=== PATIENT | male | born 1950 | race Caucasian/White ===

== ENCOUNTER → 2018-01-14 10:20 | Outpatient (CLI) | payer MEDICARE, OTHER, SELFPAY ==
[2018-01-14 12:28] LABS: Prostate Specific Antigen 0.762 ng/mL (0.10-4.00)
== END ==
PROVIDERS: Visit Provider Urology
DX: C61 Malignant neoplasm of prostate (principal)
CPT/HCPCS: 36415; 84153

== ENCOUNTER → 2018-05-20 08:27 | Outpatient (CLI) | payer MEDICARE, OTHER, SELFPAY ==
[2018-05-20 10:47] LABS: Alanine Aminotransferase 34 IU/L (21-72); Albumin 4.2 g/dL (3.5-5.0); Albumin Globulin Ratio 1.2 (1.0-2.8); Alkaline Phosphatase 63 U/L (38-126); Aspartate Aminotransferase 38 IU/L (17-59); BUN Creatinine Ratio 27.8 (6-22); Bilirubin Total 0.4 mg/dL (0.2-1.3); Blood Urea Nitrogen 25 mg/dL (9-20); Calcium 9.4 mg/dL (8.4-10.2); Carbon Dioxide 29 mmol/L (22-32); Chloride 100 mmol/L (98-107); Estimated Glomerular Filt Rate > 60.0 mL/min (>60); Globulin 3.5 g/dL (1.7-4.1); Glucose 72 mg/dL (80-110); HEMOLYSIS < 15 (0-50); Potassium 4.6 mmol/L (3.4-5.1); Sodium 141 mmol/L (137-145); Total Protein 7.7 g/dL (6.3-8.2)
== END ==
PROVIDERS: PCP Registered Nurse; Visit Provider Registered Nurse
DX: I10 Essential (primary) hypertension (principal)
CPT/HCPCS: 36415; 80053

== ENCOUNTER → 2018-06-18 11:39 | Outpatient (CLI) | payer MEDICARE, OTHER, SELFPAY ==
[2018-06-18 12:10] LABS: Add Manual Diff / Slide Review NO; Basophils Percent Auto 1.1 % (0-2); Eosinophils Percent Auto 2.5 % (2-4); Hematocrit 32.2 % (41-53); Hemoglobin 11.1 g/dL (13.5-17.5); Lymphocytes Percent Auto 37.8 % (25-40); Mean Corpuscular HGB Conc 34.5 % (30-36); Mean Corpuscular Volume 81.1 fL (80-100); Monocytes Percent Auto 20.1 % (3-14); Neutrophils Absolute Auto 1700 /uL (1500-7000); Neutrophils Percent Auto 38.5 % (50-75); Platelet Count 297 X10^3/uL (150-400); Red Blood Cell Count 3.97 X10^6/uL (4.5-5.9); White Blood Cell Count 4.5 X10^3/uL (4.5-11.0)
[2018-06-18 12:23] LABS: Erythrocyte Sedimentation Rate 57 MM/HR (0-15)
[2018-06-18 12:24] LABS: Alanine Aminotransferase 39 IU/L (21-72); Albumin 4.2 g/dL (3.5-5.0); Albumin Globulin Ratio 1.1 (1.0-2.8); Alkaline Phosphatase 68 U/L (38-126); Aspartate Aminotransferase 29 IU/L (17-59); BUN Creatinine Ratio 27.8 (6-22); Bilirubin Total 0.5 mg/dL (0.2-1.3); Blood Urea Nitrogen 25 mg/dL (9-20); Calcium 9.5 mg/dL (8.4-10.2); Carbon Dioxide 26 mmol/L (22-32); Chloride 102 mmol/L (98-107); Estimated Glomerular Filt Rate > 60.0 mL/min (>60); Globulin 3.7 g/dL (1.7-4.1); Glucose 98 mg/dL (80-110); HEMOLYSIS < 15 (0-50); Potassium 4.9 mmol/L (3.4-5.1); Sodium 143 mmol/L (137-145); Total Protein 7.9 g/dL (6.3-8.2)
[2018-06-18 12:26] LABS: C-Reactive Protein Quant < 0.5 mg/dL (<1.0)
[2018-06-18 12:35] LABS: Vitamin D 25 Hydroxy (D3) 54.7 ng/mL (30.0-100.0)
== END ==
PROVIDERS: PCP Registered Nurse; Visit Provider Specialist/Technologist Athletic Trainer
DX: M81.0 Age-related osteoporosis without current pathological fracture (principal); M05.79 Rheumatoid arthritis with rheumatoid factor of multiple sites without organ or systems involvement
CPT/HCPCS: 36415; 80053; 82306; 85025; 85651; 86140

== ENCOUNTER 2018-08-28 09:14 | Emergency (ER) | payer MEDICARE, OTHER, SELFPAY ==
[2018-08-28 09:15] VITALS: BP 160/83; PULSE 63; RESP 18; TEMP 36.6; O2SAT 100; BMI 27.1
--- NOTE | 2018-08-28 09:19 | ED.DIZZY ---
HPI - Dizziness General Chief Complaint: Dizziness Stated Complaint: DIZZINESS Time Seen by Provider: 08/28/18 09:18 Source: patient Mode of arrival: ambulatory Limitations: no limitations History of Present Illness HPI Narrative: patient is a 68-year-old presenting with a sudden onset of dizziness. He has a recent diagnosis of melanoma in the fall of 2017. Yesterday he was feeling well. This morning he woke up had breakfast was brushing his teeth and suddenly felt dizzy and lightheaded. He does feel like he cannot concentrate. He denies any chest pain or heart palpitations. He says that he is having some difficulty walking his due to the dizziness. He feels like the lightheadedness gets worse when he lies down and is slightly better with movement. He feels a little nauseated no episodes of vomiting. MD complaint: dizziness Onset (ago): minute(s) Timing: sudden onset Description: sense of movement History of similar episodes: No History of trauma: No Severity: moderate Relieving factors: nothing Related Data Home Medications Medication Instructions Recorded Confirmed CHOLECALCIFEROL (VITAMIN D3) 2,000 iu PO Q DAY #0 12/31/11 07/01/18 (Vitamin D-3) Iron (#[facility] IRON) 27 mg PO QDAY #0 04/22/12 07/01/18 leflunomide 20 mg tablet 20 mg PO DAILY 04/23/18 07/01/18 Previous Rx's Medication Instructions Recorded alprazolam [Xanax] 0.5 mg PO Q8HP #30 tab 07/20/17 omeprazole 20 mg capsule,delayed 20 mg PO QDAY #90 cap 03/22/18 release chlorthalidone 25 mg tablet 25 mg PO DAILY #90 tab 07/01/18 lisinopril 20 mg tablet 20 mg PO BID #180 tab 07/01/18 fluticasone 50 mcg/actuation nasal 1 spray INTRANASAL BID #3 gram 07/12/18 spray,suspension Allergies Allergy/AdvReac Type Severity Reaction Status Date / Time No Known Drug Allergies Allergy Verified 08/28/18 09:24 Review of Systems Review of Systems ROS Unobtainable: All systems reviewed & are unremarkable except as noted in HPI and below Constitutional Denies chills, Denies fever(s), Denies lethargy and Denies weakness Eyes Reports blurry vision, Denies change in vision, Denies eye discharge, Denies irritation and Denies loss of vision Cardiovascular Denies chest pain, Denies irregular heart rhythm, Reports lightheadedness, Denies dyspnea and Denies dyspnea on exertion Respiratory Denies cough, Denies dyspnea, Denies dyspnea on exertion and Denies wheezing Genitourinary Denies hematuria, Denies flank pain, Denies urinary incontinence and Denies urinary urgency Musculoskeletal Denies back pain, Denies muscle weakness, Denies numbness and Denies tingling Integumentary/Breasts Denies pruritus, Denies erythema, Denies rash and Denies wounds Neurologic Denies loss of vision, Denies numbness, Denies tingling and Denies weakness Allergic/Immunologic Denies wheezing [facility] Medical History Melanoma (Acute) BPH (benign prostatic hyperplasia) (Chronic 2015) Hypertension (Chronic 2015) Osteoporosis (Chronic) Rheumatoid arthritis (Chronic) Colon polyps (Resolved 2006) Prostate cancer (Resolved 05/16/16) Testicular cancer (Resolved 1993) Surgical History History of colonoscopy (Resolved ~06/06/13) S/P TURP (transurethral resection of prostate) (Resolved 05/16/16) Status post colonoscopy (Resolved 2006) Status post orchiectomy (Resolved 1993) Social History Smoking Status: Never smoker Social History Smoking Status: Never smoker Exam Initial Vital Signs Initial Vital Signs: Vital Signs Temperature 97.9 F 08/28/18 09:15 Pulse Rate 63 08/28/18 09:15 Respiratory Rate 18 08/28/18 09:15 Blood Pressure 160/83 H 08/28/18 09:15 Pulse Oximetry 100 08/28/18 09:15 GENERAL: alert elderly male no acute distress HEENT: Head atraumatic,EOMI, pupils reactive, face symmetric,, neck supple CARDIOVASCULAR: Regular rate and rhythm without murmurs, rubs or gallops. RESPIRATORY: Breath sounds equal bilaterally, no wheezes rales or rhonchi. ABDOMEN: Soft, nontender. Normoactive bowel sounds all 4 quadrants. No guarding or rebound. EXTREMITIES: Normal range of motion, no clubbing or edema. Neurovascularly intact NEUROLOGICAL: Alert and oriented x4.Normal gait and speech. Cranial nerves II through XII grossly intact. Good nabpxz-dw-yexj, good twnj-qn-bjyr, strength equal bilaterally, no dysarthria or aphasia, sensation in tact to soft touch bilaterally, no visual changes, no facial droop SKIN: Warm, dry, no laceration, no petechiae, no rashes or lesions. Scores NIH Stroke Scale Level of Conciousness: Alert, keenly responsive Ask month/age: Answers both questions correctly. Open/close eyes, close hand: Performs both tasks correctly Best gaze horizontal: Normal Visual calderon: No visual loss Facial palsy: Normal symetrical movement Left arm drift: No drift for full 10 sec Right arm drift: No drift for full 10 sec Left leg drift: No drift for full 10 sec Right leg drift: No drift for full 10 sec Limb ataxia: Absent Sensory on face/arms/legs: Normal, no sensory loss Best language: No aphasia, normal Dysarthria: Normal Extinction or inattention: No abnormality Total NIH Stroke scale score: 0 Course Orders Ordered: ED Orders 08/28/18 09:24 CT head/brain wo con Stat 08/28/18 09:40 Complete Blood Count AUTO DIFF Stat Comprehensive Metabolic Panel Stat Troponin & CK Cardiac Panel Stat Discontinued Medications Sodium Chloride (Normal Saline 0.9%) 1,000 mls @ 1,000 mls/hr IV CONT KARI Last Infusion: 08/28/18 10:53 Dose: 0 mls/hr Admin: 08/28/18 09:39 Dose: 1,000 mls/hr Ondansetron HCl (Zofran) 4 mg IV NOW ONE Stop: 08/28/18 09:24 Last Admin: 08/28/18 09:39 Dose: 4 mg Vital Signs - 8 hr 08/28/18 09:15 08/28/18 09:48 08/28/18 10:00 Temperature 97.9 F Pulse Rate 63 65 65 Respiratory Rate 18 12 16 Blood Pressure 160/83 H Blood Pressure [Left Arm] 137/75 Blood Pressure [Right Arm] 141/84 H Pulse Oximetry 100 100 99 08/28/18 10:49 Temperature Pulse Rate 68 Respiratory Rate 10 L Blood Pressure Blood Pressure [Left Arm] 138/73 Blood Pressure [Right Arm] Pulse Oximetry 100 MDM - Dizziness Lab Data Attestation: I reviewed the patient's lab results. Result diagrams: 08/28/18 09:40 08/28/18 09:40 Lab Results 08/28/18 08/28/18 08/28/18 Range/Units 09:40 09:40 09:40 WBC 4.2 L (4.5-11.0) X10^3/uL RBC 3.86 L (4.5-5.9) X10^6/uL Hgb 10.7 L (13.5-17.5) g/dL Hct 32.1 L (41-53) % MCV 83.1 (80-100) fL MCH 27.8 (26-34) PG MCHC 33.4 (30-36) % RDW 13.2 (11.6-14.8) % Plt Count 247 (150-400) X10^3/uL Neut % (Auto) 53.1 (50-75) % Lymph % (Auto) 24.3 L (25-40) % [place] % (Auto) 20.1 H (3-14) % Eos % (Auto) 1.5 L (2-4) % Baso % (Auto) 1.0 (0-2) % Neut # (Auto) 2200 (5191-3937) /uL Lymph # (Auto) 1000 L (0222-8709) /uL [place] # (Auto) 800 (0-900) /uL Eos # (Auto) 100 (0-450) /uL Baso # (Auto) 0 (0-100) /uL Sodium 140 (137-145) mmol/L Potassium 4.6 (3.4-5.1) mmol/L Chloride 101 (98-107) mmol/L Carbon Dioxide 27 (22-32) mmol/L BUN 28 H (9-20) mg/dL Creatinine 0.90 (0.66-1.25) mg/dL Estimated GFR > 60.0 (>60) mL/min BUN/Creatinine Ratio 31.1 H (6-22) Glucose 155 H (80-110) mg/dL Calcium 9.2 (8.4-10.2) mg/dL Total Bilirubin 0.4 (0.2-1.3) mg/dL AST 30 (17-59) IU/L ALT 29 (21-72) IU/L Alkaline Phosphatase 57 (38-126) U/L Total Creatine Kinase 230 H (55-170) U/L CK-MB (CK-2) 4.52 H (<2.37) ng/mL CK-MB (CK-2) Rel Index 2.0 (1.5-5.0) % Troponin I < 0.012 (0.01-0.034) ng/mL Total Protein 7.8 (6.3-8.2) g/dL Albumin 4.2 (3.5-5.0) g/dL Globulin 3.6 (1.7-4.1) g/dL Albumin/Globulin Ratio 1.2 (1.0-2.8) ECG Data Attestation: I personally reviewed and interpreted this ECG as follows: Prior ECG tracings: available for review Interpretation: normal sinus rhythm rate [address] changes slightly enlarged T-waves similar to previous EKG in 2016. No changes. MDM Narrative Medical decision making narrative: patient is feeling significantly better after IV fluids. Feels ready and able to go home. Discharge Plan Departure Patient Disposition: Home Clinical Impression: Dehydration Discharge Date/Time: 08/28/18 11:07 Interventions: ED Discharge Assessment Last Done: 08/28/18 11:06 Instructions: DI for Dehydration -- Adult Activity Restrictions/Additional Instructions: *You have been diagnosed with dehydration *What to do: blood work and CT scan are reassuring today. Recommend increasing fluid intake throughout the day. *Continue to take medications as directed *Follow up with your primary care provider in 2-3 days *Return to ER if you should have persistent dizziness, lightheadedness, is weakness, chest pain or any new, worsening or concerning symptoms Prescriptions: No Action CHOLECALCIFEROL (VITAMIN D3) (Vitamin D-3) 2,000 iu PO Q DAY Qty: 0 RF: 0 Iron (#[facility] IRON) 27 mg PO QDAY Qty: 0 RF: 0 alprazolam [Xanax] 0.5 MG tablet 0.5 mg PO Q8HP Qty: 30 RF: 1 omeprazole 20 mg capsule,delayed release(DR/EC) 20 mg PO QDAY Qty: 90 RF: 3 fluticasone 50 mcg/actuation spray,suspension 1 spray Intranasal BID Qty: 3 RF: 3 leflunomide 20 mg tablet 20 mg PO DAILY RF: 0 lisinopril 20 mg tablet 20 mg PO BID Qty: 180 RF: 0 chlorthalidone 25 mg tablet 25 mg PO DAILY Qty: 90 RF: 0 Referrals: Rj Newell MD [Primary Care Provider] -
--- NOTE | 2018-08-28 09:24 | DI.CT.S_ITS ---
PROCEDURE: CT HEAD/BRAIN WO CON INDICATIONS: dizzy with melanoma TECHNIQUE: Noncontrast 4.5 mm thick angled axial sections acquired from the foramen magnum to the vertex, with coronal and sagittal reformats. For radiation dose reduction, the following was used: automated exposure control, adjustment of mA and/or kV according to patient size. COMPARISON: None. FINDINGS: Image quality: Excellent. CSF spaces: Basal cisterns are patent. No extra-axial fluid collections. The ventricles are symmetric in size and shape. Brain: No intracranial bleeds or masses. There is cerebral volume loss for age, with resultant ventricular and sulcal prominence. There are periventricular and deep white matter chronic small vessel ischemic changes. There is intracranial internal carotid artery and vertebral artery atherosclerosis. Skull and face: Calvarium and visualized facial bones appear intact, without suspicious lesions. Sinuses: Visualized sinuses and mastoids are clear. IMPRESSION: No acute intracranial disease process. Dictated by: Tana Guajardo MD, PhD on 08/28/2018 at 9:56 Approved by: Tana Guajardo MD, PhD on 08/28/2018 at 9:58
[2018-08-28] MEDS: ONDANSETRON 4 MG/2 ML INJ IV (09:39)
[2018-08-28] MEDS: SODIUM CHLORIDE 0.9% 1,000 ML 1000 ML IV (09:39)
[2018-08-28 09:48] VITALS: BP 141/84; PULSE 65; RESP 12; O2SAT 100
[2018-08-28 09:54] LABS: Add Manual Diff / Slide Review NO; Basophils Absolute Auto 0 /uL (0-100); Eosinophils Absolute Auto 100 /uL (0-450); Eosinophils Percent Auto 1.5 % (2-4); Hematocrit 32.1 % (41-53); Hemoglobin 10.7 g/dL (13.5-17.5); Lymphocytes Absolute Auto 1000 /uL (1100-4500); Lymphocytes Percent Auto 24.3 % (25-40); Mean Corpuscular HGB Conc 33.4 % (30-36); Mean Corpuscular Hemoglobin 27.8 PG (26-34); Mean Corpuscular Volume 83.1 fL (80-100); Monocytes Absolute Auto 800 /uL (0-900); Monocytes Percent Auto 20.1 % (3-14); Neutrophils Absolute Auto 2200 /uL (1500-7000); Neutrophils Percent Auto 53.1 % (50-75); Platelet Count 247 X10^3/uL (150-400); Red Blood Cell Count 3.86 X10^6/uL (4.5-5.9); Red Cell Distribution Width 13.2 % (11.6-14.8); White Blood Cell Count 4.2 X10^3/uL (4.5-11.0)
[2018-08-28 10:00] VITALS: BP 137/75; PULSE 65; RESP 16; O2SAT 99
[2018-08-28 10:08] LABS: Creatine Kinase 230 U/L (55-170)
[2018-08-28 10:09] LABS: Alanine Aminotransferase 29 IU/L (21-72); Albumin 4.2 g/dL (3.5-5.0); Albumin Globulin Ratio 1.2 (1.0-2.8); Alkaline Phosphatase 57 U/L (38-126); Aspartate Aminotransferase 30 IU/L (17-59); BUN Creatinine Ratio 31.1 (6-22); Bilirubin Total 0.4 mg/dL (0.2-1.3); Blood Urea Nitrogen 28 mg/dL (9-20); Calcium 9.2 mg/dL (8.4-10.2); Carbon Dioxide 27 mmol/L (22-32); Chloride 101 mmol/L (98-107); Estimated Glomerular Filt Rate > 60.0 mL/min (>60); Globulin 3.6 g/dL (1.7-4.1); Glucose 155 mg/dL (80-110); HEMOLYSIS < 15 (0-50); Potassium 4.6 mmol/L (3.4-5.1); Sodium 140 mmol/L (137-145); Total Protein 7.8 g/dL (6.3-8.2)
[2018-08-28 10:21] LABS: Troponin I < 0.012 ng/mL (0.01-0.034)
[2018-08-28 10:23] LABS: Creatine Kinase MB 4.52 ng/mL (<2.37)
[2018-08-28 10:49] VITALS: BP 138/73; PULSE 68; RESP 10; O2SAT 100
== END 2018-08-28 11:07 | disposition home or self-care (01) ==
PROVIDERS: Emergency Provider Emergency Medicine; Family Provider Family Medicine; PCP Student in an Organized Health Care Education/Training Program
DX: E86.0 Dehydration (principal)
CPT/HCPCS: 36591; 70450; 80053; 82550; 82553; 84484; 85025; 93005; 93010; 96361; 96374; 99283; 99285; J2405

== ENCOUNTER → 2018-12-24 10:34 | Outpatient (CLI) | payer MEDICARE, OTHER, SELFPAY ==
[2018-12-24 11:58] LABS: Add Manual Diff / Slide Review NO; Basophils Absolute Auto 0 /uL (0-100); Basophils Percent Auto 1.3 % (0-2); Eosinophils Absolute Auto 0 /uL (0-450); Eosinophils Percent Auto 1.3 % (2-4); Hematocrit 30.4 % (41-53); Hemoglobin 10.2 g/dL (13.5-17.5); Lymphocytes Absolute Auto 1300 /uL (1100-4500); Lymphocytes Percent Auto 41.1 % (25-40); Mean Corpuscular HGB Conc 33.5 % (30-36); Mean Corpuscular Hemoglobin 27.7 PG (26-34); Mean Corpuscular Volume 82.6 fL (80-100); Monocytes Absolute Auto 600 /uL (0-900); Monocytes Percent Auto 19.8 % (3-14); Neutrophils Absolute Auto 1200 /uL (1500-7000); Neutrophils Percent Auto 36.5 % (50-75); Platelet Count 247 X10^3/uL (150-400); Red Blood Cell Count 3.68 X10^6/uL (4.5-5.9); Red Cell Distribution Width 13.3 % (11.6-14.8); White Blood Cell Count 3.2 X10^3/uL (4.5-11.0)
[2018-12-24 12:06] LABS: Erythrocyte Sedimentation Rate 49 MM/HR (0-15)
[2018-12-24 12:07] LABS: Alanine Aminotransferase 23 IU/L (21-72); Albumin 4.2 g/dL (3.5-5.0); Albumin Globulin Ratio 1.2 (1.0-2.8); Alkaline Phosphatase 52 U/L (38-126); Aspartate Aminotransferase 29 IU/L (17-59); Bilirubin Total 0.6 mg/dL (0.2-1.3); Blood Urea Nitrogen 29 mg/dL (9-20); Calcium 9.3 mg/dL (8.4-10.2); Carbon Dioxide 26 mmol/L (22-32); Chloride 104 mmol/L (98-107); Creatine Kinase 283 U/L (55-170); Estimated Glomerular Filt Rate > 60.0 mL/min (>60); Globulin 3.6 g/dL (1.7-4.1); Glucose 133 mg/dL (80-110); HEMOLYSIS < 15 (0-50); Potassium 4.3 mmol/L (3.4-5.1); Sodium 140 mmol/L (137-145); Total Protein 7.8 g/dL (6.3-8.2)
[2018-12-24 12:08] LABS: C-Reactive Protein Quant < 0.5 mg/dL (<1.0)
== END ==
PROVIDERS: Family Provider Internal Medicine Rheumatology; PCP Student in an Organized Health Care Education/Training Program; Visit Provider Specialist/Technologist Athletic Trainer
DX: M05.79 Rheumatoid arthritis with rheumatoid factor of multiple sites without organ or systems involvement (principal)
CPT/HCPCS: 36415; 80053; 82550; 83520; 85025; 85651; 86140

== ENCOUNTER → 2019-01-27 10:51 | Outpatient (CLI) | payer MEDICARE, OTHER, SELFPAY | PROVIDERS: Family Provider Student in an Organized Health Care Education/Training Program; PCP Student in an Organized Health Care Education/Training Program; Visit Provider Urology | DX: C61 Malignant neoplasm of prostate (principal) | CPT/HCPCS: 36415; 84153 ==

== ENCOUNTER → 2019-06-20 13:22 | Outpatient (CLI) | payer MEDICARE, OTHER, SELFPAY ==
[2019-06-20 13:55] LABS: Hematocrit 30.5 % (41-53); Hemoglobin 10.5 g/dL (13.5-17.5); Mean Corpuscular HGB Conc 34.6 % (30-36); Platelet Count 297 X10^3/uL (150-400); Red Blood Cell Count 3.76 X10^6/uL (4.5-5.9); White Blood Cell Count 4.5 X10^3/uL (4.5-11.0)
[2019-06-20 13:57] LABS: Add Manual Diff / Slide Review YES
[2019-06-20 14:00] LABS: Alanine Aminotransferase 27 IU/L (<50); Albumin 4.4 g/dL (3.5-5.0); Albumin Globulin Ratio 1.1 (1.0-2.8); Alkaline Phosphatase 73 U/L (38-126); Aspartate Aminotransferase 35 IU/L (17-59); Bilirubin Total 0.5 mg/dL (0.2-1.3); Blood Urea Nitrogen 30 mg/dL (9-20); C-Reactive Protein Quant 0.5 mg/dL (<1.0); Calcium 9.4 mg/dL (8.4-10.2); Carbon Dioxide 26 mmol/L (22-32); Chloride 103 mmol/L (98-107); Creatine Kinase 353 U/L (55-170); Estimated Glomerular Filt Rate > 60.0 mL/min (>60); Globulin 3.9 g/dL (1.7-4.1); Glucose 106 mg/dL (80-110); HEMOLYSIS < 15 (0-50); Potassium 4.2 mmol/L (3.4-5.1); Sodium 139 mmol/L (137-145); Total Protein 8.3 g/dL (6.3-8.2)
[2019-06-20 14:17] LABS: Neutrophils Absolute Manual 1665 /uL (3000-5900); Platelet Estimate Adequate on smear; RBC Morphology Normal Morphology; Total Cells Counted 100
[2019-06-20 14:18] LABS: Erythrocyte Sedimentation Rate 47 MM/HR (0-15)
== END ==
PROVIDERS: PCP Student in an Organized Health Care Education/Training Program; Visit Provider Internal Medicine Rheumatology
DX: M06.9 Rheumatoid arthritis, unspecified (principal)
CPT/HCPCS: 36415; 80053; 82550; 85025; 85651; 86140

== ENCOUNTER → 2020-01-07 10:24 | Outpatient (CLI) | payer MEDICARE, OTHER, SELFPAY ==
[2020-01-08 08:07] LABS: COVID19 Sendout Not Detected (Not Detect)
== END ==
PROVIDERS: PCP Student in an Organized Health Care Education/Training Program; Visit Provider Nurse Practitioner
DX: Z01.812 Encounter for preprocedural laboratory examination (principal)
CPT/HCPCS: 87635

== ENCOUNTER 2020-01-10 10:27 | Day surgery (SDC) | payer MEDICARE, OTHER, SELFPAY ==
[2020-01-10] MEDS: PROPARACAINE 0.5% OPHTH SOL 2 DROPS EYE-OP (10:37)
[2020-01-10] MEDS: CATARACT EYE COMPOUND (10 DROPS/SYRINGE) 3 DROPS EYE-OP (10:41)
[2020-01-10 10:42] VITALS: BMI 26.4
[2020-01-10 10:46] VITALS: BP 165/84; PULSE 66; RESP 14; TEMP 36.1; O2SAT 100
--- NOTE | 2020-01-10 11:51 | P.OP_ITS ---
Operative Date/Time/Diagnoses Pre-op diagnosis: Nuclear Cataract Left eye Post-op diagnosis: same Procedure & Clinicians Same procedure as scheduled: Yes Surgeon: Gee Byrne Anesthesia Type: MAC +/- and Sedation Operative Notes Procedure in detail: Patient brought to the operating suite. Tetracaine drops placed in the left eye. Patient was prepped and draped in sterile manner. Wire lid speculum was placed in the eye. Betadine drops were placed on the eye. This was irrigated. Lidocaine jelly was placed on the eye. A paracentesis port was created with a side-port blade. 0.1 mL 1% preservative free lidocaine was injected into the anterior chamber. The anterior chamber was deepened with viscoelastic. 2.6 mm keratome was used to create a temporal clear corneal incision. Cystotome and Utrata forceps were used to create continuous tear capsulorrhexis. Balanced salt solution was used to hydro dissect the nucleus. The phacoemulsification handpiece was inserted and the nucleus was removed using the stop and chop technique. The irrigation aspiration handpiece was inserted and the remaining cortex was removed. Anterior chamber was deepened with viscoe lastic. An Brown ZCB00 intraocular lens with a power of 22.5 was injected into the capsular bag. Irrigation aspiration handpiece was inserted and the remaining viscoelastic was removed. Incision was hydrated with balanced salt solution and found to be leak free with pressure with Weck-Clary sponges. 0.1 mL Vigamox injected anterior chamber. 0.3 mL Kenalog 10 mg was injected subconjunctivally. Lid speculum was removed. The patient left the operating room in excellent condition. Complications: none Post-operative Condition: stable Disposition: same day surgery
--- NOTE | 2020-01-10 11:51 | PM.PREOP ---
Pre-operative Note Interval Note History & Physical reviewed/Exam performed by Physician: Yes Changes to H&P: No
[2020-01-10 12:40] VITALS: BP 165/84; PULSE 66; RESP 14; TEMP 36.1; O2SAT 100
== END 2020-01-10 12:41 | disposition home or self-care (01) ==
PROVIDERS: PCP Student in an Organized Health Care Education/Training Program; Referring Provider Ophthalmology; Visit Provider Ophthalmology
PROC: (CPT 66984; principal; 2020-01-10 12:15)
DX: H25.12 Age-related nuclear cataract, left eye (principal); I10 Essential (primary) hypertension
CPT/HCPCS: 66984; J2250

== ENCOUNTER → 2020-01-21 12:11 | Outpatient (CLI) | payer MEDICARE, OTHER, SELFPAY ==
[2020-01-22 23:38] LABS: COVID19 Sendout Not Detected (Not Detect)
== END ==
PROVIDERS: PCP Student in an Organized Health Care Education/Training Program; Visit Provider Physician Assistant
DX: Z01.812 Encounter for preprocedural laboratory examination (principal)
CPT/HCPCS: 87635

== ENCOUNTER 2020-01-24 10:59 | Day surgery (SDC) | payer MEDICARE, OTHER, SELFPAY ==
[2020-01-24] MEDS: PROPARACAINE 0.5% OPHTH SOL 2 DROPS EYE-OP (11:42)
[2020-01-24] MEDS: CATARACT EYE COMPOUND (10 DROPS/SYRINGE) 3 DROPS EYE-OP (11:44)
[2020-01-24 11:53] VITALS: BP 177/81; PULSE 72; RESP 16; TEMP 36.7; O2SAT 98; BMI 26.4
--- NOTE | 2020-01-24 12:03 | PM.PREOP ---
Pre-operative Note Interval Note History & Physical reviewed/Exam performed by Physician: Yes Changes to H&P: No
--- NOTE | 2020-01-24 12:03 | PM.OP.1 ---
Operative Date/Time/Diagnoses Pre-op diagnosis: Nuclear cataract right eye Procedure & Clinicians Procedure: Cataract Surgery Same procedure as scheduled: Yes Surgeon: Gee Byrne Anesthesia Type: MAC +/- and Sedation Operative Notes Procedure in detail: Patient brought to the operating suite. Tetracaine drops placed in the right eye. Patient was prepped and draped in sterile manner. Wire lid speculum was placed in the eye. Betadine drops were placed on the eye. This was irrigated. Lidocaine jelly was placed on the eye. A paracentesis port was created with a side-port blade. 0.1 mL 1% preservative free lidocaine was injected into the anterior chamber. The anterior chamber was deepened with viscoelastic. 2.6 mm keratome was used to create a temporal clear corneal incision. Cystotome and Utrata forceps were used to create continuous tear capsulorrhexis. Balanced salt solution was used to hydro dissect the nucleus. The phacoemulsification handpiece was inserted and the nucleus was removed using the stop and chop technique. The irrigation aspiration handpiece was inserted and the remaining cortex was removed. Anterior chamber was deepened with viscoelastic. An Brown ZCB00 intraocular lens with a power of 21.5 was injected into the capsular bag. Irrigation aspiration handpiece was inserted and the remaining viscoelastic was removed. Incision was hydrated with balanced salt solution and found to be leak free with pressure with Weck-Clary sponges. 0.1 mL Vigamox injected anterior chamber. 0.3 mL Kenalog 10 mg was injected subconjunctivally. Lid speculum was removed. The patient left the operating room in excellent condition. Complications: none Post-operative Condition: stable Disposition: same day surgery
[2020-01-24] MEDS: MOXIFLOXACIN INJ 5 MG/ML VIAL EYE-OP (12:22)
[2020-01-24] MEDS: LIDOCAINE JELLY 2% 5 ML 1 APPLIC TOP (12:22)
[2020-01-24] MEDS: CHONDROIDTIN/SOD HYALURONATE 1.05 ML SYRINGE INTRAOCULA (12:22)
[2020-01-24] MEDS: PHENYLEPHRINE/LIDOCAINE VIAL (OR) 0.2 ML EYE-OP (12:23)
[2020-01-24] MEDS: TETRACAINE 0.5% OPHTH DROPS 4 ML 2 DROPS EYE-OP (12:23)
[2020-01-24] MEDS: TRIAMCINOLONE 50 MG/5 ML VIAL INJ (12:23)
[2020-01-24] MEDS: BALANCED SALT IRRIG SOLN NO.2 500 ML, EPINEPHrine 1 MG IRR (12:24)
[2020-01-24 12:35] VITALS: BP 125/77; PULSE 70; RESP 16; TEMP 36.6; O2SAT 99
== END 2020-01-24 12:53 | disposition home or self-care (01) ==
PROVIDERS: PCP Student in an Organized Health Care Education/Training Program; Referring Provider Ophthalmology; Visit Provider Ophthalmology
PROC: (CPT 66984; principal; 2020-01-24 12:45)
DX: H25.11 Age-related nuclear cataract, right eye (principal); I10 Essential (primary) hypertension
CPT/HCPCS: 66984; J0171; J2250; J3010; J3301

== ENCOUNTER → 2020-01-25 07:27 | Outpatient (CLI) | payer MEDICARE, OTHER, SELFPAY ==
[2020-01-25 09:03] LABS: Prostate Specific Antigen 1.13 ng/mL (0.10-4.00)
== END ==
PROVIDERS: PCP Student in an Organized Health Care Education/Training Program; Referring Provider Urology; Visit Provider Urology
DX: Z85.46 Personal history of malignant neoplasm of prostate (principal)
CPT/HCPCS: 36415; 84153

== ENCOUNTER → 2020-02-03 08:03 | Outpatient (CLI) | payer MEDICARE, OTHER, SELFPAY ==
--- NOTE | 2020-02-03 08:05 | DI.MRI.S_ITS ---
PROCEDURE: MR LUMBAR SPINE WO CON INDICATIONS: Pseudoclaudication of BLE TECHNIQUE: Noncontrast sagittal T1 spin echo and T2 fast echo, sagittal STIR, axial T1 and T2 fast spin echo through the lumbar spine. In cases with scoliosis, additional coronal T2 fast spin echo may be performed. COMPARISON: [facility], CR, XR LUMBAR SPINE WITH OBLIQUES, 12/29/2019, 11:54. FINDINGS: Image quality: Partially degraded by motion artifact Alignment and Curvature: There is normal bony alignment. Bone Marrow: Marrow is of normal overall signal. No acute vertebral body compression fractures. Mild reactive signal within the endplates adjacent to the L3-L4, L4-L5, and L5-S1 intervertebral discs. Spinal Cord: Conus medullaris terminates at the upper L1 level. Visualized cord demonstrates normal signal and size. Paraspinous Soft Tissues: No paravertebral masses. There is mild dependent paraspinous edema within the posterior subcutaneous fat of the lumbar and lower thoracic spine. L1-L2: Mild facet hypertrophy no significant canal, nor foraminal stenosis. L2-L3: Mild disc desiccation and diffuse disc bulge with small superimposed left far lateral broad-based protrusion. Mild bilateral facet and ligamentum flavum hypertrophy. Mild canal stenosis. Moderate left and mild right foraminal stenosis. L3-L4: Moderate disc height loss and desiccation. Moderate diffuse disc bulge, with superimposed broad-based left far lateral protrusion, as well as left paracentral disc extrusion which extends inferiorly in the lateral recess. Mild facet and ligamentum flavum hypertrophy. Moderate canal stenosis. Severe left and moderate right subarticular foraminal stenosis. Left L3 nerve root compression. There is compression of the left L4 nerve root within the lateral recess and at the upper L4 level. L4-L5: Moderate disc desiccation. Mild disc height loss. Mild diffuse disc bulge. Mild facet and ligamentum flavum hypertrophy. Mild canal stenosis. Mild right and moderate left subarticular foraminal stenosis. L5-S1: Moderate disc desiccation. Mild diffuse disc bulge. Mild bilateral facet hypertrophy. Mild canal stenosis. Moderate subarticular foraminal stenosis. IMPRESSION: 1. Multilevel degenerative disc and facet disease, as well as ligamentum flavum hypertrophy and epidural lipomatosis. 2. Multilevel canal stenosis, worst at L3-L4, where there is moderate canal stenosis. 3. Multilevel foraminal stenosis, worst at L3-L4 on the left where there is associated L3 nerve root compression. Additionally, there is an L3-L4 disc extrusion which causes left L4 nerve root compression. Recommend correlation with clinical symptoms to ascertain relevance of these findings. Dictated by: Donavan Ascencio M.D. on 02/03/2020 at 9:44 Approved by: Donavan Ascencio M.D. on 02/03/2020 at 9:50
== END ==
PROVIDERS: PCP Student in an Organized Health Care Education/Training Program; Referring Provider Student in an Organized Health Care Education/Training Program; Visit Provider Student in an Organized Health Care Education/Training Program
DX: M48.062 Spinal stenosis, lumbar region with neurogenic claudication (principal); M51.26 Other intervertebral disc displacement, lumbar region; M51.36 Other intervertebral disc degeneration, lumbar region; E88.2 Lipomatosis, not elsewhere classified
CPT/HCPCS: 72148

== ENCOUNTER → 2020-06-22 13:29 | Outpatient (CLI) | payer MEDICARE, OTHER, SELFPAY ==
[2020-06-22 14:03] LABS: Add Manual Diff / Slide Review NO; Basophils Absolute Auto 0 /uL (0-100); Basophils Percent Auto 0.9 % (0-2); Eosinophils Absolute Auto 100 /uL (0-450); Eosinophils Percent Auto 1.6 % (2-4); Hematocrit 31.3 % (41-53); Hemoglobin 10.4 g/dL (13.5-17.5); Lymphocytes Absolute Auto 1600 /uL (1100-4500); Lymphocytes Percent Auto 35.8 % (25-40); Mean Corpuscular HGB Conc 33.3 % (30-36); Mean Corpuscular Hemoglobin 27.9 PG (26-34); Mean Corpuscular Volume 83.7 fL (80-100); Monocytes Absolute Auto 800 /uL (0-900); Monocytes Percent Auto 17.9 % (3-14); Neutrophils Absolute Auto 2000 /uL (1500-7000); Neutrophils Percent Auto 43.8 % (50-75); Platelet Count 303 X10^3/uL (150-400); Red Blood Cell Count 3.74 X10^6/uL (4.5-5.9); White Blood Cell Count 4.5 X10^3/uL (4.5-11.0)
[2020-06-22 14:23] LABS: Erythrocyte Sedimentation Rate 65 MM/HR (0-15)
[2020-06-22 15:03] LABS: HEMOLYSIS < 15 (0-50); Potassium 4.2 mmol/L (3.4-5.1)
[2020-06-22 15:06] LABS: Alanine Aminotransferase 30 IU/L (<50); Albumin 4.3 g/dL (3.5-5.0); Albumin Globulin Ratio 1.2 (1.0-2.8); Alkaline Phosphatase 57 U/L (38-126); Aspartate Aminotransferase 42 IU/L (17-59); BUN Creatinine Ratio 22.8 (6-22); Bilirubin Total 0.4 mg/dL (0.2-1.3); Blood Urea Nitrogen 26 mg/dL (9-20); C-Reactive Protein Quant 0.5 mg/dL (<1.0); Calcium 9.6 mg/dL (8.4-10.2); Carbon Dioxide 23 mmol/L (22-32); Chloride 104 mmol/L (98-107); Estimated Glomerular Filt Rate > 60.0 mL/min (>60); Globulin 3.7 g/dL (1.7-4.1); Glucose 135 mg/dL (80-110); Sodium 137 mmol/L (137-145)
== END ==
PROVIDERS: PCP Student in an Organized Health Care Education/Training Program; Referring Provider Internal Medicine Rheumatology; Visit Provider Internal Medicine Rheumatology
DX: M05.79 Rheumatoid arthritis with rheumatoid factor of multiple sites without organ or systems involvement (principal)
CPT/HCPCS: 36415; 80053; 85025; 85651; 86140

== ENCOUNTER → 2020-07-31 08:54 | Outpatient (CLI) | payer MEDICARE, OTHER, SELFPAY ==
[2020-07-31] MEDS: COVID-19 VACC #1, MRNA(MOD) 100 MCG/0.5 ML VIAL IM (08:59)
== END ==
PROVIDERS: PCP Student in an Organized Health Care Education/Training Program; Visit Provider Internal Medicine
DX: Z23 Encounter for immunization (principal)
CPT/HCPCS: 0011A; 91301

== ENCOUNTER → 2020-08-28 09:04 | Outpatient (CLI) | payer MEDICARE, OTHER, SELFPAY ==
[2020-08-28] MEDS: COVID-19 VACC #2, MRNA(MOD) 100 MCG/0.5 ML VIAL IM (09:10)
== END ==
PROVIDERS: PCP Student in an Organized Health Care Education/Training Program; Visit Provider Internal Medicine
DX: Z23 Encounter for immunization (principal)
CPT/HCPCS: 0012A; 91301

== ENCOUNTER → 2021-02-20 08:49 | Outpatient (CLI) | payer MEDICARE, OTHER, SELFPAY ==
[2021-02-20 10:40] LABS: Prostate Specific Antigen 1.28 ng/mL (0.10-4.00)
== END ==
PROVIDERS: PCP Student in an Organized Health Care Education/Training Program; Referring Provider Urology; Visit Provider Urology
DX: C61 Malignant neoplasm of prostate (principal)
CPT/HCPCS: 36415; 84153

== ENCOUNTER → 2021-06-04 09:36 | Outpatient (CLI) | payer MEDICARE, OTHER, SELFPAY ==
[2021-06-04 10:30] LABS: Add Manual Diff / Slide Review NO; Basophils Absolute Auto 0 /uL (0-100); Basophils Percent Auto 0.8 % (0-2); Eosinophils Absolute Auto 100 /uL (0-450); Eosinophils Percent Auto 1.6 % (2-4); Hemoglobin 10.5 g/dL (13.5-17.5); Lymphocytes Absolute Auto 1700 /uL (1100-4500); Lymphocytes Percent Auto 42.7 % (25-40); Mean Corpuscular Volume 82.3 fL (80-100); Monocytes Absolute Auto 900 /uL (0-900); Monocytes Percent Auto 24.3 % (3-14); Neutrophils Absolute Auto 1200 /uL (1500-7000); Neutrophils Percent Auto 30.6 % (50-75); Platelet Count 248 X10^3/uL (150-400); Red Blood Cell Count 3.76 X10^6/uL (4.5-5.9); Red Cell Distribution Width 13.5 % (11.6-14.8); White Blood Cell Count 3.9 X10^3/uL (4.5-11.0)
[2021-06-04 10:50] LABS: Alanine Aminotransferase 34 IU/L (<50); Albumin 4.2 g/dL (3.5-5.0); Albumin Globulin Ratio 1.3 (1.0-2.8); Alkaline Phosphatase 63 U/L (38-126); Aspartate Aminotransferase 40 IU/L (17-59); BUN Creatinine Ratio 23.9 (6-22); Bilirubin Total 0.4 mg/dL (0.2-1.3); Blood Urea Nitrogen 28 mg/dL (9-20); C-Reactive Protein Quant 0.5 mg/dL (<1.0); Calcium 9.5 mg/dL (8.4-10.2); Carbon Dioxide 24 mmol/L (22-32); Chloride 103 mmol/L (98-107); Estimated Glomerular Filt Rate > 60.0 mL/min (>60); Globulin 3.2 g/dL (1.7-4.1); Glucose 139 mg/dL (80-110); HEMOLYSIS < 15 (0-50); Potassium 4.3 mmol/L (3.4-5.1); Sodium 137 mmol/L (137-145); Total Protein 7.4 g/dL (6.3-8.2)
[2021-06-04 10:58] LABS: Erythrocyte Sedimentation Rate 49 MM/HR (0-15)
== END ==
PROVIDERS: PCP Student in an Organized Health Care Education/Training Program; Referring Provider Internal Medicine Rheumatology; Visit Provider Internal Medicine Rheumatology
DX: M05.79 Rheumatoid arthritis with rheumatoid factor of multiple sites without organ or systems involvement (principal)
CPT/HCPCS: 36415; 80053; 85025; 85651; 86140

== ENCOUNTER → 2021-11-29 13:37 | Outpatient (CLI) | payer MEDICARE, OTHER, SELFPAY ==
[2021-11-29 14:12] LABS: Add Manual Diff / Slide Review NO; Basophils Absolute Auto 0 /uL (0-100); Basophils Percent Auto 0.8 % (0-2); Eosinophils Absolute Auto 100 /uL (0-450); Hemoglobin 10.5 g/dL (13.5-17.5); Lymphocytes Absolute Auto 2200 /uL (1100-4500); Lymphocytes Percent Auto 39.4 % (25-40); Mean Corpuscular HGB Conc 34.8 % (30-36); Mean Corpuscular Volume 83.2 fL (80-100); Monocytes Absolute Auto 1000 /uL (0-900); Monocytes Percent Auto 17.4 % (3-14); Neutrophils Absolute Auto 2300 /uL (1500-7000); Neutrophils Percent Auto 40.4 % (50-75); Platelet Count 296 X10^3/uL (150-400); Red Blood Cell Count 3.61 X10^6/uL (4.5-5.9); White Blood Cell Count 5.6 X10^3/uL (4.5-11.0)
[2021-11-29 14:35] LABS: Alanine Aminotransferase 25 IU/L (<50); Albumin 4.5 g/dL (3.5-5.0); Albumin Globulin Ratio 1.3 (1.0-2.8); Alkaline Phosphatase 58 U/L (38-126); Aspartate Aminotransferase 32 IU/L (17-59); BUN Creatinine Ratio 24.8 (6-22); Bilirubin Total 0.4 mg/dL (0.2-1.3); Blood Urea Nitrogen 32 mg/dL (9-20); C-Reactive Protein Quant < 0.5 mg/dL (<1.0); Calcium 9.4 mg/dL (8.4-10.2); Carbon Dioxide 24 mmol/L (22-32); Chloride 103 mmol/L (98-107); Estimated Glomerular Filt Rate 60 mL/min (>60); Globulin 3.5 g/dL (1.7-4.1); Glucose 178 mg/dL (80-110); HEMOLYSIS < 15 (0-50); Potassium 4.5 mmol/L (3.4-5.1); Sodium 136 mmol/L (137-145)
[2021-11-29 14:48] LABS: Erythrocyte Sedimentation Rate 62 MM/HR (0-15)
== END ==
PROVIDERS: PCP Student in an Organized Health Care Education/Training Program; Referring Provider Internal Medicine Rheumatology; Visit Provider Internal Medicine Rheumatology
DX: M05.79 Rheumatoid arthritis with rheumatoid factor of multiple sites without organ or systems involvement (principal)
CPT/HCPCS: 36415; 80053; 85025; 85651; 86140

== ENCOUNTER → 2021-12-20 06:40 | Outpatient (CLI) | payer MEDICARE, OTHER, SELFPAY ==
--- NOTE | 2021-12-20 | DI.MRI.S_ITS ---
PROCEDURE: MR LUMBAR SPINE WO CON INDICATIONS: SPINAL STENOSIS, LUMBAR REGION TECHNIQUE: Noncontrast sagittal T1 spin echo and T2 fast echo, sagittal STIR, and T2 fast spin echo through the lumbar spine. In cases with scoliosis, additional coronal T2 fast spin echo may be performed. COMPARISON: [facility], CR, XR LUMBAR SPINE WITH OBLIQUES PLUS FLEXION EXTENSION, 12/17/2021, 14:33. [facility], , MR LUMBAR SPINE WO CON, 02/03/2020, 8:33. FINDINGS: Image quality: Excellent. Alignment and Curvature: There is normal bony alignment. Bone Marrow: Marrow is of normal overall signal. No acute vertebral body compression fractures. Spinal Cord: Conus medullaris terminates at the upper L1 level. Visualized cord demonstrates normal signal and size. Paraspinous Soft Tissues: No paravertebral masses. T12-L1: No canal stenosis or foraminal stenosis. Left facet hypertrophy. L1-L2: Facet hypertrophy. No canal stenosis or foraminal stenosis. L2-L3: Stable findings. Minimal disc bulge. Facet hypertrophy. Mild canal stenosis. Mild right and gqcz-[id number] left foraminal narrowing. L3-L4: There is shallow broad-based posterior disc protrusion, eccentric to the left. This, in association with facet hypertrophy, results in moderate to severe canal stenosis, which is slightly progressed compared to the previous study. Of note, the shallow inferiorly directed left paracentral disc extrusion has resolved. As before, there is a far left lateral disc protrusion which contributes to severe left foraminal narrowing which appears slightly progressed with impingement on the exiting left L3 nerve root. There is rtmo-jv-[id number] right foraminal narrowing. L4-L5: Disc bulge. Facet hypertrophy. Lzgw-vl-zbgksino canal stenosis. Mild bilateral foraminal stenosis. L5-S1: As before, annulus tear plus disc bulge. Facet hypertrophy. Mild canal stenosis. Mild bilateral foraminal stenosis. IMPRESSION: 1. A previous shallow left paracentral disc extrusion at L3-L4 has resolved. Despite this, there has been slight progression of canal stenosis at this level, which is moderate to severe. Additionally, again noted is a far left lateral disc protrusion at this level. Severe left foraminal narrowing appears slightly progressed, with left L3 nerve root impingement. 2. Canal stenosis is mild at L2-L3, ybog-af-nutfphqw at L4-L5, and mild at L5-S1. 3. Multilevel facet arthropathy. 4. Multilevel foraminal narrowing as described above. Dictated by: Georges Woodward M.D. on 12/20/2021 at 9:24 Approved by: Georges Woodward M.D. on 12/20/2021 at 9:41
== END ==
PROVIDERS: PCP Student in an Organized Health Care Education/Training Program; Referring Provider Physical Medicine & Rehabilitation Pain Medicine; Visit Provider Physical Medicine & Rehabilitation Pain Medicine
DX: M48.062 Spinal stenosis, lumbar region with neurogenic claudication (principal); M48.07 Spinal stenosis, lumbosacral region; M51.26 Other intervertebral disc displacement, lumbar region; M47.816 Spondylosis without myelopathy or radiculopathy, lumbar region; M47.817 Spondylosis without myelopathy or radiculopathy, lumbosacral region
CPT/HCPCS: 72148

== ENCOUNTER → 2022-05-06 15:58 | Outpatient (CLI) | payer MEDICARE, OTHER, SELFPAY ==
[2022-05-06 16:45] LABS: Add Manual Diff / Slide Review NO; Basophils Absolute Auto 0 /uL (0-100); Basophils Percent Auto 0.8 % (0-2); Eosinophils Absolute Auto 200 /uL (0-450); Hematocrit 30.5 % (41-53); Hemoglobin 10.4 g/dL (13.5-17.5); Lymphocytes Absolute Auto 1600 /uL (1100-4500); Lymphocytes Percent Auto 38.3 % (25-40); Mean Corpuscular HGB Conc 33.9 % (30-36); Mean Corpuscular Hemoglobin 28.5 PG (26-34); Mean Corpuscular Volume 83.9 fL (80-100); Monocytes Absolute Auto 800 /uL (0-900); Monocytes Percent Auto 19.4 % (3-14); Neutrophils Absolute Auto 1600 /uL (1500-7000); Neutrophils Percent Auto 37.5 % (50-75); Platelet Count 305 X10^3/uL (150-400); Red Blood Cell Count 3.64 X10^6/uL (4.5-5.9); Red Cell Distribution Width 13.1 % (11.6-14.8); White Blood Cell Count 4.2 X10^3/uL (4.5-11.0)
[2022-05-06 16:52] LABS: Alanine Aminotransferase 32 IU/L (<50); Albumin 4.3 g/dL (3.5-5.0); Albumin Globulin Ratio 1.2 (1.0-2.8); Alkaline Phosphatase 80 U/L (38-126); Aspartate Aminotransferase 33 IU/L (17-59); BUN Creatinine Ratio 20.2 (6-22); Bilirubin Total 0.4 mg/dL (0.2-1.3); Blood Urea Nitrogen 22 mg/dL (9-20); Calcium 9.2 mg/dL (8.4-10.2); Carbon Dioxide 24 mmol/L (22-32); Chloride 104 mmol/L (98-107); Estimated Glomerular Filt Rate > 60 mL/min (>60); Globulin 3.6 g/dL (1.7-4.1); Glucose 127 mg/dL (80-110); HEMOLYSIS < 15 (0-50); Potassium 4.3 mmol/L (3.4-5.1); Sodium 138 mmol/L (137-145); Total Protein 7.9 g/dL (6.3-8.2)
[2022-05-06 17:08] LABS: Cholesterol 174 mg/dL (140-199); HDL Cholesterol 39 mg/dL (40-60); LDL Cholesterol Calculated 84 mg/dL (<100); Triglycerides 253 mg/dL (35-150)
[2022-05-06 17:23] LABS: TSH w/ Reflex to FT4 1.92 uIU/mL (0.47-4.68)
[2022-05-06 17:42] LABS: Prostate Specific Antigen Scrn 1.27 ng/mL (0.1-4.0)
[2022-05-11 17:17] LABS: Testosterone % Fr + Wkly bound 23.9 % (9.0-46.0); Testosterone Fr+Wkly bound 57.9 ng/dL (40.0-250.0); Testosterone, Total 242.3 ng/dL (264.0-916.0)
== END ==
PROVIDERS: Internal Medicine Hematology & Oncology; PCP Student in an Organized Health Care Education/Training Program; Referring Provider Student in an Organized Health Care Education/Training Program; Visit Provider Student in an Organized Health Care Education/Training Program
DX: N52.9 Male erectile dysfunction, unspecified (principal); Z12.5 Encounter for screening for malignant neoplasm of prostate; Z13.220 Encounter for screening for lipoid disorders; D63.8 Anemia in other chronic diseases classified elsewhere
CPT/HCPCS: 80053; 80061; 84146; 84403; 84443; 85025; G0103

== ENCOUNTER → 2022-06-02 15:04 | Outpatient (CLI) | payer MEDICARE, OTHER, SELFPAY ==
[2022-06-02 16:02] LABS: Add Manual Diff / Slide Review NO; Basophils Absolute Auto 0 /uL (0-100); Basophils Percent Auto 0.8 % (0-2); Eosinophils Absolute Auto 100 /uL (0-450); Eosinophils Percent Auto 2.2 % (2-4); Hematocrit 29.8 % (41-53); Hemoglobin 10.2 g/dL (13.5-17.5); Lymphocytes Absolute Auto 1700 /uL (1100-4500); Mean Corpuscular HGB Conc 34.2 % (30-36); Mean Corpuscular Hemoglobin 28.4 PG (26-34); Monocytes Absolute Auto 1000 /uL (0-900); Neutrophils Absolute Auto 2200 /uL (1500-7000); Platelet Count 280 X10^3/uL (150-400); Red Blood Cell Count 3.58 X10^6/uL (4.5-5.9); Red Cell Distribution Width 12.7 % (11.6-14.8); White Blood Cell Count 5.1 X10^3/uL (4.5-11.0)
[2022-06-02 16:16] LABS: Alanine Aminotransferase 35 IU/L (<50); Albumin 4.2 g/dL (3.5-5.0); Albumin Globulin Ratio 1.2 (1.0-2.8); Alkaline Phosphatase 68 U/L (38-126); Aspartate Aminotransferase 35 IU/L (17-59); BUN Creatinine Ratio 24.2 (6-22); Bilirubin Total 0.4 mg/dL (0.2-1.3); Blood Urea Nitrogen 39 mg/dL (9-20); C-Reactive Protein Quant < 0.5 mg/dL (<1.0); Calcium 8.8 mg/dL (8.4-10.2); Carbon Dioxide 21 mmol/L (22-32); Chloride 103 mmol/L (98-107); Estimated Glomerular Filt Rate 45 mL/min (>60); Globulin 3.6 g/dL (1.7-4.1); Glucose 108 mg/dL (80-110); HEMOLYSIS < 15 (0-50); Potassium 4.2 mmol/L (3.4-5.1); Sodium 137 mmol/L (137-145); Total Protein 7.8 g/dL (6.3-8.2)
[2022-06-02 16:43] LABS: Erythrocyte Sedimentation Rate 34 MM/HR (0-15)
== END ==
PROVIDERS: PCP Student in an Organized Health Care Education/Training Program; Referring Provider Internal Medicine Rheumatology; Visit Provider Internal Medicine Rheumatology
DX: M05.79 Rheumatoid arthritis with rheumatoid factor of multiple sites without organ or systems involvement (principal)
CPT/HCPCS: 36415; 80053; 85025; 85651; 86140

== ENCOUNTER → 2022-07-01 07:16 | Outpatient (CLI) | payer MEDICARE, OTHER, SELFPAY ==
[2022-07-01 08:15] LABS: BUN Creatinine Ratio 25.7 (6-22); Blood Urea Nitrogen 29 mg/dL (9-20); Calcium 9.2 mg/dL (8.4-10.2); Carbon Dioxide 22 mmol/L (22-32); Chloride 101 mmol/L (98-107); Estimated Glomerular Filt Rate > 60 mL/min (>60); Glucose 100 mg/dL (80-110); HEMOLYSIS < 15 (0-50); Sodium 134 mmol/L (137-145)
[2022-07-01 08:20] LABS: Potassium 3.9 mmol/L (3.4-5.1)
[2022-07-01 09:29] LABS: Creatinine Urine Random 75.9 mg/dL
[2022-07-01 09:33] LABS: Microalbumi Creatinin Ratio Ur 7.9 ug/mg CR (<30); Microalbumin Urine Random 0.6 mg/dL (0-1.6)
== END ==
PROVIDERS: PCP Student in an Organized Health Care Education/Training Program; Referring Provider Student in an Organized Health Care Education/Training Program; Visit Provider Student in an Organized Health Care Education/Training Program
DX: N17.9 Acute kidney failure, unspecified (principal)
CPT/HCPCS: 36415; 80048; 82043; 82570

== ENCOUNTER → 2022-10-21 09:11 | Outpatient (CLI) | payer MEDICARE, OTHER, SELFPAY ==
--- NOTE | 2022-10-21 09:12 | DI.US.S_ITS ---
PROCEDURE: US SOFT TISSUE HEAD AND NECK INDICATIONS: RIGHT MANDIBULAR ANGLE LUMP TECHNIQUE: Real-time scanning was performed of the neck region of interest, with image documentation. COMPARISON: None. FINDINGS: Scanning is performed at the area of clinical concern within the right similar region. At this site, there is irregular hypoechoic solid-appearing lesion seen that measures 2.4 x 1.5 x 2.6 cm. Mild surrounding increased vascularity can be seen. IMPRESSION: Nonspecific hypoechoic irregular mass seen at the area of clinical concern within the right submandibular region is up to 2.4 cm lesion. Concern is raised for a metastatic lymph node, although differential diagnosis includes inflammatory mass. A dedicated soft tissue protocol neck CT with IV contrast is now recommended for further evaluation in a patient of this age. Dictated by: Ren Palmer M.D. on 10/21/2022 at 10:54 Approved by: Ren Palmer M.D. on 10/21/2022 at 11:03
== END ==
PROVIDERS: PCP Student in an Organized Health Care Education/Training Program; Referring Provider Student in an Organized Health Care Education/Training Program; Visit Provider Student in an Organized Health Care Education/Training Program
DX: R22.0 Localized swelling, mass and lump, head (principal)
CPT/HCPCS: 76536

== ENCOUNTER → 2022-10-23 15:22 | Outpatient (CLI) | payer MEDICARE, OTHER, SELFPAY ==
[2022-10-23 15:54] LABS: BUN Creatinine Ratio 25.5 (6-22); Blood Urea Nitrogen 27 mg/dL (9-20); Calcium 8.8 mg/dL (8.4-10.2); Carbon Dioxide 26 mmol/L (22-32); Chloride 104 mmol/L (98-107); Estimated Glomerular Filt Rate > 60 mL/min (>60); Glucose 132 mg/dL (80-110); HEMOLYSIS < 15 (0-50); Potassium 4.7 mmol/L (3.4-5.1); Sodium 137 mmol/L (137-145)
== END ==
PROVIDERS: PCP Student in an Organized Health Care Education/Training Program; Referring Provider Student in an Organized Health Care Education/Training Program; Visit Provider Student in an Organized Health Care Education/Training Program
DX: N14.11 Contrast-induced nephropathy (principal); R22.0 Localized swelling, mass and lump, head; T50.8X5A Adverse effect of diagnostic agents, initial encounter
CPT/HCPCS: 36415; 80048

== ENCOUNTER → 2022-10-24 08:42 | Outpatient (CLI) | payer MEDICARE, OTHER, SELFPAY ==
--- NOTE | 2022-10-24 08:43 | DI.CT.S_ITS ---
PROCEDURE: CT SOFT TISSUE NECK W CON INDICATIONS: Re-assess neck mass seen on u/s TECHNIQUE: After the administration of intravenous contrast, 3.0 mm axial sections acquired from the sella to the aortic arch. Additional oblique axial 3.0 mm sections acquired through the pharynx. 3 mm thick coronal and sagittal reformats were generated. For radiation dose reduction, the following was used: automated exposure control. COMPARISON: [facility], SOFT TISSUE HEAD AND NECK, 10/21/2022, 9:19. FINDINGS: Skull Base: The visualized intracranial contents, skull, and orbits are unremarkable. Visualized paranasal sinuses are clear. Pharynx and Larynx: The nasopharyngeal airway is patent and midline. Parapharyngeal soft tissues including palatine tonsils and base of the tongue are normal. Retropharyngeal space unremarkable. Normal appearance of the false and true vocal cords. Muscles and Fascial Planes: Fascial planes are well maintained. No abscess or mass lesion. Lymph Nodes: No evidence of adenopathy. Vasculature: Unremarkable. Submandibular and Parotid Glands: Within the right parotid gland, there is a focal nodular lesion corresponding with the palpable abnormality measuring 1.7 by 2.1 by 2.5 cm. Lesion shows peripheral enhancement in a low-density core, corresponding with findings on the prior ultrasound. Additionally, several surgical clips noted adjacent to the right submandibular gland which is otherwise normal in appearance. Left submandibular gland unremarkable. Thyroid: Unremarkable. No enlarged or calcified nodules. Bones: No acute fracture. No osteolytic or blastic lesion is evident. Normal bone mineralization. Lung Apices: The visualized lung apices are clear. IMPRESSION: 1. Right parotid solid-appearing nodule corresponds with palpable abnormality. Differential includes intraparotid necrotic lymph node, pleomorphic adenoma, Warthin's tumor and other primary parotid gland tumors. Consider ultrasound-guided percutaneous biopsy Approved by: Manjinder Nieto M.D. on 10/24/2022 at 14:10
== END ==
PROVIDERS: PCP Student in an Organized Health Care Education/Training Program; Referring Provider Student in an Organized Health Care Education/Training Program; Visit Provider Student in an Organized Health Care Education/Training Program
DX: K11.9 Disease of salivary gland, unspecified (principal); R22.0 Localized swelling, mass and lump, head
CPT/HCPCS: 70491; Q9967

== ENCOUNTER → 2022-11-12 08:15 | Outpatient (CLI) | payer MEDICARE, OTHER, SELFPAY ==
--- NOTE | 2022-11-12 | PATH_ITS ---
Note [facility] Accession Number: [id number] TESTS RESULT FLAG UNITS REF RANGE LAB Clinician Provided Cytology Information No. of containers..01 Other (Miscellaneous) No. of containers..02 Previously Prepared Cytology Slide Source: [A] 01 RIGHT SUP/LAT NECK-INF TO EAR-PAROTID GLAND AREA MASS VS LN DIAGNOSIS: [A] 01 RIGHT SUP/LAT NECK-INF TO EAR-PAROTID GLAND AREA POSITIVE FOR MALIGNANT CELLS; UNDIFFERENTIATED EPITHELIOID MALIGNANCY. COMMENT: The specimen is cellular and consists of loosely cohesive groups of round to elongated cells with moderate;y abundant cytoplasm and eccentric enlarged pleomorphic nuclei with hyperchromasia. The differential diagnsosis includes a poorly differentiated carcinoma and melanoma. Tissue examination is required for further classification. This case is also reviewed by Dr. Nasima Garcia who concurs with the given interpretation. The results are verbally provided by Dr. Rice to Nurse Tate on 11/14/2022 at 12:25 p.m. Pathologist ICD10: 01 R22.1 Signed out by: Jaycee Rice MD, Pathologist NPI- [id number] Performed by: Tristin Jacobs, Building Drafting Officer ([facility]) Gross description: 01 30 CC, COLORLESS, CLEAR RECIEVED: IN CYTOLYT WITH 6 ALCOHOL FIXED AND 6 QUICK STAINED SLIDES. VO /VDU 11/13/2022 0618 Local FLAG LEGEND: L-Low Normal,H-High Normal,LL-Alert Low,HH-Alert High <-Panic Low,>-Panic High,A-Abnormal,AA-Critical Abnormal Performed at: 01 =Z [facility] [address], [place] [address] Adi Mcpherson MD, Performed at: 01 [facility] [address], [place], [place] [id number] MD Adi Mcpherson MD Phone: [phone]
--- NOTE | 2022-11-12 08:16 | DI.US.S_ITS ---
PROCEDURE: US FINE NEEDLE ASPIRATION INDICATIONS: Eval right mandibular mass TECHNIQUE: The indications, alternatives, benefits, risks, and complications of the procedure were explained to the patient. Written informed consent was obtained and placed in the chart. Real-time sonography was utilized to choose the site for percutaneous lymph node sampling. The skin was prepped and draped in the usual sterile fashion. 1% lidocaine was infiltrated down to the site of interest. Serial hypodermic needles were then advanced into the site of interest under direct sonographic visualization, and serial needle aspirates were obtained. The needles were then withdrawn; a bandage was applied to the procedure site. COMPARISON: None. FINDINGS: Sample site(s): Right pre-auricular lymph node Needle: 25 gauge. Number of passes: 6. Medications: 1% lidocaine for local anaesthesia. Complications: None. IMPRESSION: Successful ultrasound-guided right pre-auricular lymph node fine needle aspiration, with cytology results pending. Dictated by: Barak Baumann M.D. on 11/12/2022 at 16:07 Approved by: Barak Baumann M.D. on 11/12/2022 at 16:07
== END ==
PROVIDERS: PCP Student in an Organized Health Care Education/Training Program; Referring Provider Student in an Organized Health Care Education/Training Program; Visit Provider Student in an Organized Health Care Education/Training Program
DX: R59.0 Localized enlarged lymph nodes (principal)
CPT/HCPCS: 10005

== ENCOUNTER 2023-10-21 17:46 | Emergency (ER) | payer MEDICARE, OTHER, SELFPAY ==
[2023-10-21] VITALS (20 sets, daily range): BP systolic 159–198; BP diastolic 77–91; PULSE 67–100; RESP 10–19; TEMP 36.6–37.2; O2SAT 100; BMI 20.9
--- NOTE | 2023-10-21 17:58 | DI.RAD.S_ITS ---
PROCEDURE: XR CHEST 1V INDICATIONS: Shortness of breath TECHNIQUE: One view of the chest was acquired. COMPARISON: [facility], , CHEST 2 VIEW, 05/06/2016, 10:50. FINDINGS: Surgical changes and devices: Surgical clips project over the right apex.. Lungs and pleura: Lungs are clear. No pleural effusions or pneumothorax. Mediastinum: Mediastinal contours appear normal. Heart size is normal. Bones and chest wall: No suspicious bony lesions. Overlying soft tissues appear unremarkable. IMPRESSION: No acute cardiopulmonary abnormalities or focal airspace disease. Dictated by: Tariq Yeung M.D. on 10/21/2023 at 20:16 Approved by: Tariq Yeung M.D. on 10/21/2023 at 20:16
--- NOTE | 2023-10-21 18:09 | ED.GENADULT ---
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 He does not feel that he is infectious disease type ill just fatigued. He notes multiple positive review of you of systems findings related to his immunotherapy, radiation therapy to his neck as well as radical neck dissection. He is able to swallow but definitely has decreased appetite and has lost 40-50 lb in the last year. Related Data Home Medications Medication Instructions Recorded Confirmed cholecalciferol (vitamin D3) 50 50 mcg PO DAILY ##0 12/31/11 12/16/22 mcg (2,000 unit) capsule (Vitamin D3) leflunomide 20 mg tablet 20 mg PO DAILY 04/23/18 12/16/22 polypodium leucotomos extract 240 240 mg PO DAILY 02/02/20 12/16/22 mg capsule (Heliocare) Lactobacillus acidophilus 10 10,000 mmu cells PO DAILY 05/16/21 12/16/22 billion cell capsule (Probiotic) alendronate 70 mg tablet 70 mg PO QWEEK 12/11/21 12/16/22 fluorouracil 5 % topical cream 1 applic topical BID 10/02/22 12/16/22 gabapentin 300 mg capsule 300 mg PO TID 12/16/22 12/16/22 Previous Rx's Medication Instructions Recorded tadalafil 10 mg tablet 10 mg PO DAILY PRN sexual activity 05/12/22 #20 tabs lisinopril 20 mg tablet 20 mg PO BID #180 tabs 05/19/22 fluticasone propionate 50 See Rx Instructions .Route 08/20/22 mcg/actuation nasal .COMPLEX #48 grams spray,suspension chlorthalidone 50 mg tablet 50 mg PO DAILY #90 tabs 10/08/22 alprazolam 0.5 mg tablet (Xanax) 0.5 mg PO BEDTIME PRN insomnia #10 11/05/22 tabs omeprazole 20 mg capsule,delayed 20 mg PO .q48hr #45 caps 04/27/23 release furosemide 20 mg tablet 20 mg PO DAILY #7 tabs 10/22/23 Allergies Allergy/AdvReac Type Severity Reaction Status Date / Time No Known Drug Allergies Allergy Verified 10/21/23 17:58 Review of Systems Review of Systems Narrative: Pertinent positive and negative findings as per HPI Patient History Medical History (Updated 10/22/23 @ 00:11 by Arlen Thurman MD) Severe anemia Spinal stenosis Melanoma Colon polyps (2006) BPH (benign prostatic hyperplasia) (2015) Hypertension (2015) Rheumatoid arthritis Testicular cancer (1993) Osteoporosis Prostate cancer (05/16/16) Surgical History History of colonoscopy (~06/06/13) S/P TURP (transurethral resection of prostate) (05/16/16) Status post orchiectomy (1993) Status post colonoscopy (2006) Social History household members: spouse Smoking Status: Never smoker alcohol intake: current (wine, sometimes spirit, etc,.) substance use type: does not use Smoking Status: Never smoker alcohol intake frequency: holidays/special occasions only Substance Use Type: does not use Exam Initial Vital Signs Initial Vital Signs: Vital Signs Temperature 97.8 F 10/21/23 17:50 Pulse Rate 82 10/21/23 17:50 Respiratory Rate 15 10/21/23 17:50 Blood Pressure 198/88 H 10/21/23 17:50 Pulse Oximetry 100 10/21/23 17:50 Oxygen Delivery Method Room Air 10/21/23 17:50 General: Chronically ill-appearing, thin but alert appropriate and able to provide complete and detailed history HEENT: Moist mucous membranes, normal sclera with reactive pupils, Neck: No JVD, radiation scarring and surgical scarring with post surgical changes appreciated Respiratory: Lungs are clear to auscultation, no wheezing no rales no rhonchi. Full and symmetrical air movement Cardiac: Regular rate and rhythm no murmurs no bruits Abdomen: Soft, nontender, good bowel tones, no flank pain Skin: Warm and dry, no rashes Neurologic: Grossly neurologically intact with no obvious asymmetries or abnormalities Extremities: No trauma, well perfused, 1+ bilateral lower extremity edema Psych: Cooperative, appropriate insight and affect Course Orders Ordered: ED Orders 10/21/23 17:58 XR chest 1V Stat Measure peak expiratory flow ONCE RT Consult Eval and Treat NOW 10/21/23 18:09 EKG-12 Lead Stat 10/21/23 18:25 Complete Blood Count AUTO DIFF Stat Comprehensive Metabolic Panel Stat Lactate (Lactic Acid) Stat NT-proBNP (BNP-Adult 18+) Stat Prothrombin Time INR Stat Troponin I Stat Type and Screen Stat transfuse [Packed Cells] Stat 10/21/23 20:09 CT angio chest PE protocol Stat Vital Signs Vital signs: Vital Signs - 8 hr 10/21/23 17:50 10/21/23 18:28 10/21/23 18:28 Temperature 97.8 F Pulse Rate 82 71 Respiratory Rate 15 13 Blood Pressure 198/88 H 163/78 H Pulse Oximetry 100 100 Oxygen Delivery Method Room Air 10/21/23 18:30 10/21/23 18:30 10/21/23 19:00 Temperature Pulse Rate 75 70 Respiratory Rate 12 10 L Blood Pressure 168/82 H Pulse Oximetry 100 100 Oxygen Delivery Method 10/21/23 19:00 10/21/23 19:30 10/21/23 19:30 Temperature Pulse Rate 69 Respiratory Rate 13 Blood Pressure 183/84 H 165/80 H Pulse Oximetry 100 Oxygen Delivery Method 10/21/23 20:00 10/21/23 20:00 10/21/23 20:30 Temperature Pulse Rate 69 70 Respiratory Rate 13 12 Blood Pressure 182/85 H Pulse Oximetry 100 100 Oxygen Delivery Method 10/21/23 20:30 10/21/23 21:00 10/21/23 21:17 Temperature Pulse Rate 67 Respiratory Rate 13 Blood Pressure 168/81 H 168/83 H Pulse Oximetry 100 Oxygen Delivery Method 10/21/23 21:17 10/21/23 21:20 10/21/23 21:30 Temperature 98.2 F Pulse Rate 100 H 67 68 Respiratory Rate 12 18 15 Blood Pressure 168/83 H Pulse Oximetry 100 100 Oxygen Delivery Method 10/21/23 21:30 10/21/23 21:35 10/21/23 21:36 Temperature 98.4 F Pulse Rate 73 Respiratory Rate 16 Blood Pressure 165/80 H 188/91 H 188/91 H Pulse Oximetry Oxygen Delivery Method 10/21/23 21:36 10/21/23 22:00 10/21/23 22:00 Temperature Pulse Rate 73 75 Respiratory Rate 17 19 Blood Pressure 178/86 H Pulse Oximetry 100 100 Oxygen Delivery Method 10/21/23 23:36 Temperature 98.2 F Pulse Rate 74 Respiratory Rate 16 Blood Pressure 173/85 H Pulse Oximetry Oxygen Delivery Method Medical Decision Making Lab Data 10/21/23 18:25 10/21/23 18:25 Labs: Lab Results 10/21/23 Range/Units 18:25 WBC 7.3 (4.5-11.0) X10^3/uL RBC 2.64 L (4.5-5.9) X10^6/uL Hgb 7.4 L (13.5-17.5) g/dL Hct 22.1 L (41-53) % MCV 84.0 (80-100) fL MCH 27.9 (26-34) PG MCHC 33.2 (30-36) % RDW 13.9 (11.6-14.8) % Plt Count 268 (150-400) X10^3/uL Neut % (Auto) 69.9 (50-75) % Lymph % (Auto) 15.6 L (25-40) % Marathon % (Auto) 13.6 (3-14) % Eos % (Auto) 0.6 L (2-4) % Baso % (Auto) 0.3 (0-2) % Neut # (Auto) 5100 (2616-4786) /uL Lymph # (Auto) 1100 (8789-0609) /uL Marathon # (Auto) 1000 H (0-900) /uL Eos # (Auto) 0 (0-450) /uL Baso # (Auto) 0 (0-100) /uL PT 13.4 H (9.4-12.5) SECONDS INR 1.2 (0.9-1.3) Sodium 133 L (137-145) mmol/L Potassium 4.0 (3.4-5.1) mmol/L Chloride 106 (98-107) mmol/L Carbon Dioxide 24 (22-32) mmol/L BUN 30 H (9-20) mg/dL Creatinine 0.88 (0.66-1.25) mg/dL Estimated GFR > 60 (>60) mL/min BUN/Creatinine Ratio 34.1 H (6-22) Glucose 77 L (80-110) mg/dL Lactate 1.9 (0.7-2.1) mmol/L Calcium 7.4 L (8.4-10.2) mg/dL Total Bilirubin 0.4 (0.2-1.3) mg/dL AST 42 (17-59) IU/L ALT 43 (<50) IU/L Alkaline Phosphatase 171 H (38-126) U/L Troponin I < 0.012 (0.01-0.034) ng/mL NT-Pro-B Natriuret Pep 2660 H (<125) pg/mL Total Protein 5.6 L (6.3-8.2) g/dL Albumin 2.4 L (3.5-5.0) g/dL Globulin 3.2 (1.7-4.1) g/dL Albumin/Globulin Ratio 0.8 L (1.0-2.8) Blood Type A Positive Antibody Screen Negative Crossmatch See Detail MDM Narrative Medical decision making narrative: CC: Exertional chest pain, dyspnea Complicating co-morbidities: Metastatic melanoma, rheumatoid arthritis with anemia of chronic disease Data collected from: patient, Social determinants of health that may influence the patients condition: Currently on 2 types of immunotherapy Medical records reviewed: Oncology notes from August of 2023 reviewed Oncology notes from [facility] September of this year are reviewed. 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 Adjuvant radiation to the neck, underwent surgical resection in December of 2022. Because of his rheumatoid arthritis the adjuvant immunotherapy was of concern. He currently is receiving both pilimumab and nivolumab immune therapy. Differential considered: PE, severe anemia, acute coronary disease, infection Exam documented above, pertinent findings include: Pale, ill-appearing that toxic. Exam otherwise is relatively benign Lab Test results independently reviewed as above. Pertinent findings: White count is 7.3, H and H of 7.4 and 22.1. Platelets are 268 Chemistries are reassuring, normal creatinine. Glucose is slightly low at 77 and calcium is slightly low at 7.4. ProBNP is 2660. Troponin is undetectable Independently reviewed EKG: Sinus rhythm at a rate of 71. Normal intervals, normal axis. No acute ischemic changes. Imaging studies independently reviewed: Chest x-ray is unremarkable. No radiologic evidence of significant cardiomegaly or congestive heart failure CT angiogram of the chest ruled out pulmonary emboli and makes note of similar appearances to metastatic disease findings include lymphadenopathy and pulmonary nodules Treatments: 1 unit of packed red cells Discussion: 73-year-old gentleman with exertional dyspnea. No evidence of viral or bacterial etiology. No pneumonia. No radiologic evidence of congestive heart failure with a slightly elevated proBNP on blood work and mild increase in lower extremity edema without crackles appreciated on exam I am going to give him 40 mg of po Lasix after the unit of blood was transfused today. We will suggest 20 mg of Lasix daily for the next week. There is no indication for antibiotics. No evidence of pulmonary embolism or acute coronary syndrome. No evidence of obviously worsening known metastatic melanoma. A note is sent to his oncologist, Dr. Cutler at [facility]. Questions were answered and reasons for return to the emergency department reviewed with both patient and his . They are safe for discharge Discharge Plan Departure Patient Disposition: Home Clinical Impression: Exertional dyspnea, Chest pain, exertional Melanoma Qualifiers: Melanoma location: neck Qualified Code(s): C43.4 - Malignant melanoma of scalp and neck Anemia Qualifiers: Anemia type: other cause Volume overload Qualifiers: Hypervolemia type: transfusion-associated Qualified Code(s): E87.71 - Transfusion associated circulatory overload Instructions: Anemia, DI for Shortness of Breath Activity Restrictions/Additional Instructions: Thank you for coming in today You are given 1 unit of packed red blood cells in the emergency department. I have sent you home with a 40 mg tablet of Lasix and want you gotten some sleep I would recommend taking it 1st thing in the morning. You can certainly take it now but you will likely be a going to the bathroom for a number of hours following the medicine. I am also going to give you an additional 7 days of 20 mg of Lasix to help with the volume overload. The volume overload is partly from the blood transfusion and partly because your heart isn't working as efficiently as it could. I would like to see the lower extremity edema decrease slightly. I think this will also help with your exertional dyspnea With your workup today I did not find evidence of heart attack, infection, collapsed lung, pulmonary embolism or alternate explanation that would require additional hospitalization or further workup. Similarly, all of the areas of metastases previously appreciated do not appear to be worsening at this time. I did send an electronic message to Dr. Cutler to let him know about the blood transfusion and recommendations for 7 days of additional Lasix. If you find that you are getting worse or develop any new symptoms, please feel free to return to the emergency department for further evaluation. Prescriptions: New furosemide 20 mg tablet 20 mg PO DAILY Qty: 7 0RF No Action cholecalciferol (vitamin D3) [Vitamin D3] 50 mcg (2,000 unit) Capsule 50 mcg PO DAILY Qty: 0 alendronate 70 mg tablet 70 mg PO QWEEK tadalafil 10 mg tablet 10 mg PO DAILY PRN (Reason: sexual activity) Qty: 20 11RF Rx Instructions: administer approximately 30min before sexual activity; do not use more than 1 dose per 24hrs lisinopril 20 mg tablet 20 mg PO BID Qty: 180 3RF fluticasone propionate 50 mcg/actuation spray,suspension See Rx Instructions .ROUTE .COMPLEX Qty: 48 3RF Dose Instruction: USE 1 SPRAY IN EACH NOSTRIL TWICE DAILY Rx Instructions: USE 1 SPRAY IN EACH NOSTRIL TWICE DAILY fluorouracil 5 % cream 1 applic topical BID chlorthalidone 50 mg tablet 50 mg PO DAILY Qty: 90 2RF alprazolam [Xanax] 0.5 mg tablet 0.5 mg PO BEDTIME PRN (Reason: insomnia) Qty: 10 4RF omeprazole 20 mg capsule,delayed release(DR/EC) 20 mg PO .q48hr Qty: 45 1RF Hold Instructions: trying to wean off Rx Instructions: PLEASE CALL INTO CLINIC AND SCHEDULE NEW PATIENT APPT W/NEW PCP FÉLIX. THANK YOU 04/27/23. leflunomide 20 mg tablet 20 mg PO DAILY Heliocare 240 mg capsule 240 mg PO DAILY gabapentin 300 mg capsule 300 mg PO TID Probiotic 10 billion cell Capsule 10,000 mmu cells PO DAILY Referrals: Minesh Aguayo MD [Primary Care Provider] - Stand Alone Forms: Patient Portal/API
[2023-10-21 18:39] LABS: Add Manual Diff / Slide Review NO; Basophils Absolute Auto 0 /uL (0-100); Basophils Percent Auto 0.3 % (0-2); Eosinophils Absolute Auto 0 /uL (0-450); Eosinophils Percent Auto 0.6 % (2-4); Hematocrit 22.1 % (41-53); Hemoglobin 7.4 g/dL (13.5-17.5); Lymphocytes Absolute Auto 1100 /uL (1100-4500); Lymphocytes Percent Auto 15.6 % (25-40); Mean Corpuscular HGB Conc 33.2 % (30-36); Mean Corpuscular Hemoglobin 27.9 PG (26-34); Monocytes Absolute Auto 1000 /uL (0-900); Monocytes Percent Auto 13.6 % (3-14); Neutrophils Absolute Auto 5100 /uL (1500-7000); Neutrophils Percent Auto 69.9 % (50-75); Platelet Count 268 X10^3/uL (150-400); Red Blood Cell Count 2.64 X10^6/uL (4.5-5.9); Red Cell Distribution Width 13.9 % (11.6-14.8); White Blood Cell Count 7.3 X10^3/uL (4.5-11.0)
[2023-10-21 18:45] LABS: INR 1.2 (0.9-1.3); Prothrombin Time 13.4 SECONDS (9.4-12.5)
[2023-10-21 18:55] LABS: Lactate (Lactic Acid) 1.9 mmol/L (0.7-2.1)
[2023-10-21 18:56] LABS: Alanine Aminotransferase 43 IU/L (<50); Albumin 2.4 g/dL (3.5-5.0); Albumin Globulin Ratio 0.8 (1.0-2.8); Alkaline Phosphatase 171 U/L (38-126); Aspartate Aminotransferase 42 IU/L (17-59); BUN Creatinine Ratio 34.1 (6-22); Bilirubin Total 0.4 mg/dL (0.2-1.3); Blood Urea Nitrogen 30 mg/dL (9-20); Calcium 7.4 mg/dL (8.4-10.2); Carbon Dioxide 24 mmol/L (22-32); Chloride 106 mmol/L (98-107); Estimated Glomerular Filt Rate > 60 mL/min (>60); Globulin 3.2 g/dL (1.7-4.1); Glucose 77 mg/dL (80-110); HEMOLYSIS < 15 (0-50); Sodium 133 mmol/L (137-145); Total Protein 5.6 g/dL (6.3-8.2)
[2023-10-21 19:08] LABS: NT-proBNP (BNP-Adult 18+) 2660 pg/mL (<125); Troponin I < 0.012 ng/mL (0.01-0.034)
--- NOTE | 2023-10-21 20:09 | DI.CT.S_ITS ---
PROCEDURE: CT ANGIO CHEST PE PROTOCOL INDICATIONS: exertional dyspnea and CP TECHNIQUE: After the administration of intravenous contrast, 2 mm thick sections acquired from the pulmonary apices to the posterior costophrenic angles. 3-dimensional maximum intensity projection (MIP) coronal and sagittal reformats were then acquired through the thorax. For radiation dose reduction, the following was used: automated exposure control, adjustment of mA and/or kV according to patient size. COMPARISON: [facility], [place], PET WHOLE BODY MELANOMA, 09/11/2023, 9:29. FINDINGS: Image quality: Diagnostic. Pulmonary arteries: Pulmonary arteries are normal in size, and demonstrate no intraluminal filling defects to suggest central pulmonary embolism. Lower Neck: No enlarged lymph nodes. Thyroid: No thyroid nodules which require sonographic follow up, per consensus guidelines. Axillae: Prominent and mildly enlarged axillary lymph nodes. Chest Wall: Unremarkable. Bones: Degenerative changes of the spine. Lungs and Pleura: Small left and trace right pleural effusions. Biapical pleuroparenchymal scarring. Left lower lobe mildly spiculated nodule measuring 1.5 cm is similar to prior. Scattered additional subcentimeter pulmonary nodules are similar to prior. Heart: Heart size is normal. No pericardial effusion. Thoracic Vessels: No aortic aneurysm. Mild atherosclerotic vascular calcifications. Mediastinum and Lilian: Prominent enlarged mediastinal lymph nodes. For example a 1.5 cm precarinal lymph node. Esophagus: No wall thickening. No hiatal hernia. Upper Abdomen: Trace free fluid within the upper abdomen is similar to prior. Visualized upper abdomen solid organs and bowel loops appear normal. IMPRESSION: No pulmonary embolus. No acute cardiopulmonary process. Similar appearance of metastatic disease including enlarged lymph nodes and pulmonary nodules. Dictated by: Logan Little M.D. on 10/21/2023 at 21:10 Approved by: Logan Little M.D. on 10/21/2023 at 21:19
[2023-10-22] MEDS: FUROSEMIDE 40 MG TABLET PO (00:11)
== END 2023-10-22 00:21 | disposition home or self-care (01) ==
PROVIDERS: Emergency Medicine; Emergency Provider Emergency Medicine; PCP Pediatrics
DX: R07.9 Chest pain, unspecified (principal); R06.00 Dyspnea, unspecified; C43.4 Malignant melanoma of scalp and neck; E87.71 Transfusion associated circulatory overload; D64.9 Anemia, unspecified
CPT/HCPCS: 36430; 71045; 71275; 80053; 83605; 83880; 84484; 85025; 85610; 86850; 86900; 86901; 93005; 99284; P9016; Q9967

== ENCOUNTER → 2023-11-10 11:54 | Outpatient (CLI) | payer MEDICARE, OTHER, SELFPAY ==
[2023-11-10 12:54] LABS: Add Manual Diff / Slide Review NO; Basophils Absolute Auto 0 /uL (0-100); Basophils Percent Auto 0.6 % (0-2); Eosinophils Absolute Auto 0 /uL (0-450); Eosinophils Percent Auto 0.6 % (2-4); Hemoglobin 8.5 g/dL (13.5-17.5); Lymphocytes Absolute Auto 1700 /uL (1100-4500); Lymphocytes Percent Auto 30.4 % (25-40); Mean Corpuscular HGB Conc 34.1 % (30-36); Mean Corpuscular Hemoglobin 28.2 PG (26-34); Mean Corpuscular Volume 82.7 fL (80-100); Monocytes Absolute Auto 800 /uL (0-900); Monocytes Percent Auto 14.2 % (3-14); Neutrophils Absolute Auto 3100 /uL (1500-7000); Neutrophils Percent Auto 54.2 % (50-75); Platelet Count 395 X10^3/uL (150-400); Red Blood Cell Count 3.03 X10^6/uL (4.5-5.9); Red Cell Distribution Width 14.9 % (11.6-14.8); White Blood Cell Count 5.6 X10^3/uL (4.5-11.0)
[2023-11-10 13:24] LABS: Alanine Aminotransferase 41 IU/L (<50); Albumin 2.2 g/dL (3.5-5.0); Albumin Globulin Ratio 0.7 (1.0-2.8); Alkaline Phosphatase 202 U/L (38-126); Aspartate Aminotransferase 39 IU/L (17-59); BUN Creatinine Ratio 29.8 (6-22); Bilirubin Total 0.4 mg/dL (0.2-1.3); Blood Urea Nitrogen 28 mg/dL (9-20); Calcium 7.8 mg/dL (8.4-10.2); Carbon Dioxide 25 mmol/L (22-32); Chloride 107 mmol/L (98-107); Estimated Glomerular Filt Rate > 60 mL/min (>60); Globulin 3.1 g/dL (1.7-4.1); Glucose 69 mg/dL (80-110); Potassium 4.4 mmol/L (3.4-5.1); Sodium 134 mmol/L (137-145); Total Protein 5.3 g/dL (6.3-8.2)
[2023-11-10 13:28] LABS: HEMOLYSIS < 15 (0-50); Iron 44 ug/dL (49-181)
[2023-11-10 13:35] LABS: HEMOLYSIS < 15 (0-50); NT-proBNP (BNP-Adult 18+) 3850 pg/mL (<125)
[2023-11-10 13:41] LABS: Percent Iron Saturation 36 % (20-50); Total Iron Binding Capacity 123 ug/dL (261-462)
[2023-11-10 13:44] LABS: Transferrin < 80 mg/dL (206-381)
[2023-11-10 14:16] LABS: Vitamin B12 990 pg/mL (239-931)
== END ==
PROVIDERS: PCP Family Medicine; Referring Provider Family Medicine; Visit Provider Family Medicine
DX: I10 Essential (primary) hypertension (principal); D63.8 Anemia in other chronic diseases classified elsewhere; N17.9 Acute kidney failure, unspecified
CPT/HCPCS: 36415; 80053; 82607; 83540; 83550; 83880; 85025

== ENCOUNTER → 2023-11-11 16:01 | Outpatient (CLI) | payer MEDICARE, OTHER, SELFPAY | PROVIDERS: PCP Family Medicine; Referring Provider Family Medicine; Visit Provider Family Medicine | DX: I10 Essential (primary) hypertension (principal); N17.9 Acute kidney failure, unspecified; D63.8 Anemia in other chronic diseases classified elsewhere | CPT/HCPCS: 36415; 86850; 86900; 86901 ==

== ENCOUNTER → 2023-12-01 14:54 | Outpatient (CLI) | payer MEDICARE, OTHER, SELFPAY ==
--- NOTE | 2023-12-01 14:55 | DI.ECHO.S_ITS ---
[facility] : : [address] [place] : : [id number] : : Phone: [phone] Echocardiogram Report + + :Name: WILLIAM YOUNG Study Date: 12/01/2023 Height: 72 in : :Hospital ReadingLocation: Weight: 150 lb : : Gender: Male BSA: 1.9 m2 : :: 1950 Age: 73 yrs BP: 175/95 mmHg: :Reason For Study: EVAL POSSIBLE CHF : :Ordering Physician: SABINE, : :ELENA Performed By: Travon Cota : :Referring: ELENA REGALADO : + + Interpretation Summary 1) Mildly increased left ventricular thickness (concentric) with normal size and mildly reduced systolic function (EF 45-50%). 2) Normal right ventricular size and function. 3) There is moderate mitral regurgitation. 4) There is mild to moderate aortic regurgitation. 5) The aortic root is mildly dilated at 4.2cm. 6) Hypertension present during the study (BP 175/95mmHg). 7) No prior echo available for comparison. Procedure: A two-dimensional transthoracic echocardiogram with color flow and Doppler was performed. The study quality was technically adequate. There is no prior echocardiogram noted for this patient. POOR/INTERMITENT EKG SIGNAL. The heart rate ranged between estimated 73-78 bpm during the study. Left Ventricle: The left ventricle is normal in size. Left ventricular wall thickness is mildly increased. The ejection fraction is estimated to be 45- 50%. There is mild global hypokinesis of the left ventricle. Right Ventricle: The right ventricle is normal size. The right ventricular systolic function is normal. Atria: The left atrium is moderately dilated. The right atrium is mildly dilated. The interatrial septum grossly appears intact with no obvious evidence for an atrial septal defect. Mitral Valve: The mitral valve leaflets are mildly calcified. There is no mitral valve stenosis. There is moderate mitral regurgitation. Aortic Valve: The aortic valve is grossly normal. The aortic valve is mildly calcified. There is no aortic valve stenosis. There is mild to moderate aortic regurgitation. Tricuspid Valve: The tricuspid valve is normal. There is no tricuspid stenosis. There is mild tricuspid regurgitation. The right ventricular systolic pressure is estimated to be at least 37.5 mmHg based on an estimated right atrial pressure of 8 mm Hg. Pulmonic Valve: The pulmonic valve is not well visualized. There is no pulmonic valvular stenosis. There is a trace or physiologic amount of pulmonic regurgitation. Great Vessels: The aortic root is mildly dilated. The ascending aorta is mildly enlarged. The IVC is of normal diameter and collapses less than 50% with a sniff. This suggests a right atrial pressure of 8 mm Hg. Pericardium/ Pleura There is no pericardial effusion. There is no pleural effusion. MMode/2D Measurements & Calculations LVIDd: 4.4 cm LVOT diam: 2.4 cm LVIDs: 3.5 cm Ao root diam: 4.2 cm FS: 21.0 % asc Aorta Diam: 4.0 cm IVSd: 1.1 cm Ao Arch Diam (Prox Trans): 3.7 cm LVPWd: 1.2 cm LV morris. diameter/BSA (cm/m^2): 2.4 LV sys. diameter/BSA (cm/m^2): 1.9 LA A2 area: 24.6 cm2 RA long axis: 5.8 cm LA A4 area: 23.0 cm2 RA area: 20.5 cm2 LA length (vol): 5.5 cm RA vol: 61.5 ml LA vol: 87.6 ml RA : 32.6 ml/m2 LA vol index: 46.5 ml/m2 IVC diam: 1.9 cm RVD1 (basal): 3.2 cm RVD2 (mid): 3.0 cm TAPSE: 2.7 cm Doppler Measurements & Calculations Ao V2 max: 135.4 cm/sec LVOT Max Paddy: 114.1 cm/sec Ao V2 mean: 99.4 cm/sec LV V1 max P.2 mmHg Ao max P.3 mmHg LV V1 VTI: 21.4 cm Ao mean P.2 mmHg NUVIA(I,D): 3.5 cm2 Ao V2 VTI: 28.0 cm NUVIA(V,D): 3.9 cm2 sev ratio: 0.77 NUVIA indexed to BSA (cm^2/m^2): 1.9 AI P1/2t: 256.7 msec AI dec slope: 519.8 cm/sec2 MV E max paddy: 72.1 cm/sec TR max paddy: 271.5 cm/sec MV A max paddy: 95.0 cm/sec TR max P.5 mmHg MV E/A: 0.76 PA V2 max: 87.5 cm/sec Med Peak E' Paddy: 6.3 cm/sec PA V2 mean: 61.0 cm/sec E/E' med: 11.5 PA mean P.6 mmHg Lat Peak E' Paddy: 11.6 cm/sec PA pr(Accel): 41.3 mmHg E/E' lat: 6.2 E/e' average: 8.8 MV dec time: 0.25 sec MR ERO: 0.34 cm2 MR PISA: 6.8 cm2 SV(LVOT): 99.1 ml MR flow rate: 251.2 cm3/sec MR PISA radius: 1.0 cm Reading Physician:04:39 PM
== END ==
PROVIDERS: PCP Family Medicine; Referring Provider Family Medicine; Visit Provider Family Medicine
DX: I08.3 Combined rheumatic disorders of mitral, aortic and tricuspid valves (principal); I77.810 Thoracic aortic ectasia; I77.89 Other specified disorders of arteries and arterioles; I11.0 Hypertensive heart disease with heart failure; I50.9 Heart failure, unspecified; N17.9 Acute kidney failure, unspecified; D63.8 Anemia in other chronic diseases classified elsewhere
CPT/HCPCS: 93306

== ENCOUNTER 2024-03-30 15:50 | Emergency (ER) | payer MEDICARE, OTHER, SELFPAY ==
[2024-03-30] VITALS (9 sets, daily range): BP systolic 152–187; BP diastolic 74–90; PULSE 69–78; RESP 12–20; TEMP 36.6; O2SAT 97–100; BMI 20.3
[2024-03-30 16:39] LABS: Add Manual Diff / Slide Review NO; Basophils Absolute Auto 0 /uL (0-100); Basophils Percent Auto 0.8 % (0-2); Eosinophils Absolute Auto 0 /uL (0-450); Eosinophils Percent Auto 0.3 % (2-4); Hematocrit 25.3 % (41-53); Hemoglobin 8.5 g/dL (13.5-17.5); Lymphocytes Absolute Auto 1200 /uL (1100-4500); Lymphocytes Percent Auto 19.6 % (25-40); Mean Corpuscular HGB Conc 33.6 % (30-36); Mean Corpuscular Hemoglobin 29.7 PG (26-34); Mean Corpuscular Volume 88.6 fL (80-100); Monocytes Absolute Auto 1200 /uL (0-900); Monocytes Percent Auto 19.9 % (3-14); Neutrophils Absolute Auto 3600 /uL (1500-7000); Neutrophils Percent Auto 59.4 % (50-75); Platelet Count 326 X10^3/uL (150-400); Red Blood Cell Count 2.85 X10^6/uL (4.5-5.9); Red Cell Distribution Width 13.8 % (11.6-14.8); White Blood Cell Count 6.1 X10^3/uL (4.5-11.0)
--- NOTE | 2024-03-30 16:39 | PC.NURSE ---
patient was on a cruise ship and passed out and was transfused on the cruise ship. They went to [facility] to a hospital and had more blood transfused and also had an EGD. he was found to have a large ulcer likely due to nsaid usage. He has been having bloody stool. He denies current SOB, dizzyness at this time.
--- NOTE | 2024-03-30 16:41 | ED_ITS ---
HPI - GI Bleed General Chief complaint: GI Bleed Stated complaint: feels like is bleeding from ulcer, weakness Time Seen by Provider: 03/30/24 16:41 Source: patient Mode of arrival: Ambulatory History of Present Illness HPI Narrative: 73-year-old gentleman with a history of melanoma post radical neck dissection, hypertension, arthritis has been taking increased aspirin and ibuprofen to help with arthritis pain was recently on a cruise to [place] when he had an episode of collapse. Had a large GI bleed and on the ship was found to have a hemoglobin of 6.0 was transfused on the ship with passenger is donating blood. [facility] admitted [facility] with endoscopy showing a large ulcer on the lesser curvature of the stomach. Presumably caused by his nonsteroidals however there was a concern that it could have been malignant or melanoma metastases. Bleeding had stopped at that time he returned to the [facility] got back this morning is again feeling weak in his if he is going to collapse. Worried that he is rebleeding. He has been having continued black stools but describes pellet-like consistency rather than any melena. Mild midepigastric pain, generalized fatigue. No other complaints at this time Related Data Home Medications Medication Instructions Recorded Confirmed cholecalciferol (vitamin D3) 50 50 mcg PO DAILY ##0 12/31/11 12/08/23 mcg (2,000 unit) capsule (Vitamin D3) hydroxychloroquine 200 mg tablet 200 mg PO BID 11/10/23 12/08/23 ipilimumab 200 mg/40 mL (5 mg/mL) mg IV Stage 4 melanoma 11/10/23 12/08/23 intravenous solution nivolumab 240 mg/24 mL intravenous mg IV Stage 4 melanoma 11/10/23 12/08/23 solution prochlorperazine maleate 10 mg 10 mg PO Q6H PRN 11/10/23 12/08/23 tablet sennosides 8.6 mg tablet (Senna 8.6 mg PO BID 11/10/23 12/08/23 Laxative) Previous Rx's Medication Instructions Recorded fluticasone propionate 50 See Rx Instructions .Route 11/05/23 mcg/actuation nasal .COMPLEX #48 grams spray,suspension lisinopril 20 mg tablet 20 mg PO BID #180 tabs 11/05/23 Disabled Parking Permint #1 ea 12/08/23 ferrous gluconate 324 mg (38 mg 324 mg PO DAILY #90 tabs 12/08/23 iron) tablet furosemide 20 mg tablet 20 mg PO BID #180 tabs 01/18/24 alprazolam 0.5 mg tablet (Xanax) 0.5 mg PO BEDTIME PRN insomnia #10 01/20/24 tabs omeprazole 20 mg capsule,delayed 20 mg PO .q48hr #45 caps 01/20/24 release meloxicam 15 mg tablet 15 mg PO DAILY #90 tabs 01/26/24 Allergies Allergy/AdvReac Type Severity Reaction Status Date / Time No Known Drug Allergies Allergy Verified 03/30/24 16:03 Review of Systems Review of Systems Narrative: Pertinent positive and negative findings as per HPI Patient History Medical History Weight loss of more than 10% body weight Lower extremity edema Congestive heart failure Severe anemia Spinal stenosis Melanoma Colon polyps (2006) BPH (benign prostatic hyperplasia) (2015) Hypertension (2015) Rheumatoid arthritis Testicular cancer (1993) Osteoporosis Prostate cancer (05/16/16) Surgical History History of colonoscopy (~06/06/13) S/P TURP (transurethral resection of prostate) (05/16/16) Status post orchiectomy (1993) Status post colonoscopy (2006) Social History household members: spouse Smoking Status: Never smoker alcohol intake: current (wine, sometimes spirit, etc,.) substance use type: does not use Smoking Status: Never smoker alcohol intake frequency: holidays/special occasions only Substance Use Type: does not use Exam Initial Vital Signs Initial Vital Signs: Vital Signs Temperature 98 F 03/30/24 15:56 Pulse Rate 75 03/30/24 15:56 Respiratory Rate 17 03/30/24 15:56 Blood Pressure 153/74 H 03/30/24 15:56 Pulse Oximetry 100 03/30/24 15:56 Oxygen Delivery Method Room Air 03/30/24 15:56 General: Chronically ill-appearing and slightly pale appears to be uncomfortable but is appropriate and able to cooperate completely HEENT: Moist mucous membranes, normal sclera with reactive pupils, post radical neck dissection Respiratory: Lungs are clear to auscultation, no wheezing no rales no rhonchi. Full and symmetrical air movement Cardiac: Regular rate and rhythm no murmurs no bruits Abdomen: Soft, mild epigastric tenderness, no flank pain Skin: Pale, no rashes noted Neurologic: Globally weak but overall Grossly neurologically intact with no obvious asymmetries or abnormalities Extremities: No trauma, Psych: Cooperative, appropriate insight and affect Course Orders Ordered: ED Orders 03/30/24 16:04 EKG-12 Lead Stat 03/30/24 16:29 Complete Blood Count AUTO DIFF Stat Comprehensive Metabolic Panel Stat PTT Partial Thromboplastin Gregg Stat Prothrombin Time INR Stat Type and Screen Stat Ondansetron HCl (Ondansetron 4 Mg/2 Ml Inj) 4 mg IV NOW PRN PRN Reason: Nausea And Vomiting Ondansetron HCl (Ondansetron 4 Mg Odt) 4 mg SL NOW PRN PRN Reason: Nausea And Vomiting Discontinued Medications Sodium Chloride (Normal Saline 0.9%) 1,000 mls @ 1,000 mls/hr IV BOLUS ONE Stop: 03/30/24 17:49 Last Admin: 03/30/24 16:56 Dose: 1,000 mls/hr Documented By: DEANNE Pantoprazole Sodium (Pantoprazole 40 Mg Vial) 80 mg IV NOW ONE Stop: 03/30/24 16:05 Last Admin: 03/30/24 16:54 Dose: 80 mg Documented By: DEANNE Pantoprazole Sodium (Pantoprazole 40 Mg Vial) 80 mg IV NOW ONE Stop: 03/30/24 16:51 Last Admin: 03/30/24 16:55 Dose: Not Given Documented By: DEANNE Vital Signs Vital signs: Vital Signs - 8 hr 03/30/24 15:56 03/30/24 16:10 03/30/24 16:12 Temperature 98 F Pulse Rate 75 77 Respiratory Rate 17 16 Blood Pressure 153/74 H 159/84 H Pulse Oximetry 100 99 Oxygen Delivery Method Room Air 03/30/24 16:12 03/30/24 16:30 03/30/24 16:30 Temperature Pulse Rate 73 75 Respiratory Rate 15 14 Blood Pressure 152/78 H Pulse Oximetry 99 99 Oxygen Delivery Method MDM - GI Bleed Lab Data 03/30/24 16:29 03/30/24 16:29 Labs: Lab Results 09/25/24 Range/Units 16:29 WBC 6.1 (4.5-11.0) X10^3/uL RBC 2.85 L (4.5-5.9) X10^6/uL Hgb 8.5 L (13.5-17.5) g/dL Hct 25.3 L (41-53) % MCV 88.6 (80-100) fL MCH 29.7 (26-34) PG MCHC 33.6 (30-36) % RDW 13.8 (11.6-14.8) % Plt Count 326 (150-400) X10^3/uL Neut % (Auto) 59.4 (50-75) % Lymph % (Auto) 19.6 L (25-40) % [place] % (Auto) 19.9 H (3-14) % Eos % (Auto) 0.3 L (2-4) % Baso % (Auto) 0.8 (0-2) % Neut # (Auto) 3600 (0318-3616) /uL Lymph # (Auto) 1200 (1241-9709) /uL [place] # (Auto) 1200 H (0-900) /uL Eos # (Auto) 0 (0-450) /uL Baso # (Auto) 0 (0-100) /uL PT 11.7 (9.4-12.5) SECONDS INR 1.0 (0.9-1.3) APTT 28 (25.1-36.5) SECONDS Sodium 131 L (137-145) mmol/L Potassium 4.5 (3.4-5.1) mmol/L Chloride 99 (98-107) mmol/L Carbon Dioxide 26 (22-32) mmol/L BUN 26 H (9-20) mg/dL Creatinine 0.85 (0.66-1.25) mg/dL Estimated GFR > 60 (>60) mL/min BUN/Creatinine Ratio 30.6 H (6-22) Glucose 101 (80-110) mg/dL Calcium 8.7 (8.4-10.2) mg/dL Total Bilirubin 0.4 (0.2-1.3) mg/dL AST 25 (17-59) IU/L ALT 18 (<50) IU/L Alkaline Phosphatase 161 H (38-126) U/L Total Protein 6.6 (6.3-8.2) g/dL Albumin 3.2 L (3.5-5.0) g/dL Globulin 3.4 (1.7-4.1) g/dL Albumin/Globulin Ratio 0.9 L (1.0-2.8) Blood Type A Positive Antibody Screen Negative MDM Narrative Medical decision making narrative: CC: Feeling weak, recent significant upper GI bleed with transfusion and does not endoscopy in [place] Complicating co-morbidities: History of multiple myeloma, post radical neck dissection. Notes from [facility] physician describe an ulcer in the lesser curve of the stomach however concern for possibility of malignancy at that site with a that is primary malignancy or metastatic malignancy, arthritis with significant joint pain, hypertension Data collected from: patient, Medical records reviewed: Records from Oncology, Rheumatology both in January are reviewed, family practice notes from December reviewed Differential considered: Continued upper GI bleeding, pain, generalized fatigue from travel, Exam documented above, pertinent findings include: Patient appears fatigued mild epigastric tenderness, somewhat pale Lab Test results independently reviewed as above. Pertinent findings: Patient does bring in lab work noting hemoglobin of 6 4 days ago presumably this was prior to transfusion but that is not entirely clear. Today hemoglobin is 8.5, hematocrit 25.3. Chemistries show appropriate renal function no significant electrolyte abnormalities. Liver studies were reassuring Slightly elevated alk-phos is actually trending down. Imaging studies independently reviewed: Consultations: Treatments: Patient has been given a L of fluid, 80 mg of pantoprazole Zofran Re-evaluations: Discussion: On re-evaluation patient continues to feel well no vomiting, no diarrhea, blood pressure is actually increased slightly. He does remain guaiac positive with the firm stool that he does have. H&H is up from 6 on the to 8.5 today. He has not appointment with Gastroenterology at [facility] on April 04. He has an appointment with [facility] April 01. We had a long discussion regarding continued care from here. With shared decision making we opted to go ahead and discharge home with recommendations to go to [facility] should he have recurrent bleeding. I also suggested that he contact the surgery office to let them know the events of the recent cruise, the GI bleed, hemoglobin is lowest 6 and up to 8.5 today. Encouraged them to keep the appointment with gastroenterology on Thursday. Questions are answered and he is safe for discharge Discharge Plan Departure Patient Disposition: Home Clinical Impression: GI bleed Qualifiers: GI bleed type/associated pathology: gastric ulcer Qualified Code(s): K25.4 - Chronic or unspecified gastric ulcer with hemorrhage Instructions: DI for Gastric Ulcer Activity Restrictions/Additional Instructions: Thank you for coming in today You were paperwork from [place] indicates that you did have an ulcer in your stomach. Your currently on appropriate acid blocking medication. Your hemoglobin notes from the surgeon into [facility] indicate that your hemoglobin was 6.0. Today you are up to 8.5. There is no sign of active bleeding although you are clearly still having some old blood in your stools Please call the general surgery office and let them know about the upper GI bleed, the blood transfusions and how you are currently feeling. Let them know that your hemoglobin drawn at [facility] on the was 8.5 and see if they want to continue with the scheduled port placement If you find that you are having more bleeding or active bleeding I would strongly recommend going to [facility] because you will need the expertise of the Gastroenterology Service there to appropriatly care for you. If you find that you are having additional symptoms or other concerns please feel free to return to the ER Prescriptions: No Action cholecalciferol (vitamin D3) [Vitamin D3] 50 mcg (2,000 unit) Capsule 50 mcg PO DAILY Qty: 0 lisinopril 20 mg tablet 20 mg PO BID Qty: 180 3RF Rx Instructions: bridge to PCP appt fluticasone propionate 50 mcg/actuation spray,suspension See Rx Instructions .ROUTE .COMPLEX Qty: 48 3RF Dose Instruction: USE 1 SPRAY IN EACH NOSTRIL TWICE DAILY Rx Instructions: USE 1 SPRAY IN EACH NOSTRIL TWICE DAILY bridge to PCP appt furosemide 20 mg tablet 20 mg PO BID Qty: 180 1RF omeprazole 20 mg capsule,delayed release(DR/EC) 20 mg PO .q48hr Qty: 45 3RF Hold Instructions: trying to wean off alprazolam [Xanax] 0.5 mg tablet 0.5 mg PO BEDTIME PRN (Reason: insomnia) Qty: 10 4RF meloxicam 15 mg tablet 15 mg PO DAILY Qty: 90 0RF prochlorperazine maleate 10 mg tablet 10 mg PO Q6H PRN hydroxychloroquine 200 mg tablet 200 mg PO BID nivolumab 240 mg/24 mL solution IV ipilimumab 200 mg/40 mL (5 mg/mL) solution IV sennosides [Senna Laxative] 8.6 mg tablet 8.6 mg PO BID (DME) Disabled Parking Permint See Rx Instructions .ROUTE .MEDSUPPLY Qty: 1 0RF Rx Instructions: I find this patient to be medically disabled and qualified for Disabled Parking as indicated and signed on the Accompanying Disabled Parking Application for individuals. ferrous gluconate 324 mg (38 mg iron) tablet 324 mg PO DAILY Qty: 90 1RF Referrals: Roger Beyer, [Primary Care Provider] - Stand Alone Forms: Patient Portal/API
[2024-03-30 16:48] LABS: Prothrombin Time 11.7 SECONDS (9.4-12.5)
[2024-03-30 16:50] LABS: PTT Partial Thromboplastin Tim 28 SECONDS (25.1-36.5)
[2024-03-30 16:53] LABS: Alanine Aminotransferase 18 IU/L (<50); Albumin 3.2 g/dL (3.5-5.0); Albumin Globulin Ratio 0.9 (1.0-2.8); Alkaline Phosphatase 161 U/L (38-126); Aspartate Aminotransferase 25 IU/L (17-59); BUN Creatinine Ratio 30.6 (6-22); Bilirubin Total 0.4 mg/dL (0.2-1.3); Blood Urea Nitrogen 26 mg/dL (9-20); Calcium 8.7 mg/dL (8.4-10.2); Carbon Dioxide 26 mmol/L (22-32); Chloride 99 mmol/L (98-107); Estimated Glomerular Filt Rate > 60 mL/min (>60); Globulin 3.4 g/dL (1.7-4.1); Glucose 101 mg/dL (80-110); HEMOLYSIS 24 (0-50); Potassium 4.5 mmol/L (3.4-5.1); Sodium 131 mmol/L (137-145); Total Protein 6.6 g/dL (6.3-8.2)
[2024-03-30] MEDS: PANTOPRAZOLE 40 MG VIAL 80 MG IV (16:54)
[2024-03-30] MEDS: SODIUM CHLORIDE 0.9% 1,000 ML 1000 ML IV (16:56)
== END 2024-03-30 18:54 | disposition home or self-care (01) ==
PROVIDERS: Emergency Provider Emergency Medicine; PCP Family Medicine
DX: K25.4 Chronic or unspecified gastric ulcer with hemorrhage (principal)
CPT/HCPCS: 36415; 80053; 82272; 85025; 85610; 85730; 86850; 86900; 86901; 96361; 96374; 99284; J2470